=== PATIENT | female | born 1995 | race Caucasian/White ===

== ENCOUNTER 2019-05-01 20:34 | Emergency (ER) | payer BC, OTHER ==
--- OUTSIDE RECORDS SUMMARY | 2019-05-01 20:39 | XMS REPORT | Continuity of Care Document ---
:1995 Author Organization [employer] Care Team Providers Name Role Phone [employer] Unavailable Unavailable Problems Problem Status Onset Classification Date Comments Source Date Reported Abdominal pain 11/14/19 11/17/2018 [place] [facility] [place] Sore throat 11/14/19 11/17/2018 [place] [facility] [place] OTHER Active 11/10/19 [place] [facility] [place] False labor 08/20/20 12/28/2018 [place] before 37 18 [place] completed weeks of gestation, third trimester First degree 07/26/20 02/06/2019 [place] perineal 18 [place] laceration during delivery Late vomiting of 07/20/20 01/31/2019 [place] False labor at or 07/14/20 01/26/2019 [place] after 37 18 [place] completed weeks of gestation RELATED Active 07/14/20 [place] related 07/13/20 01/24/2019 [place] conditions, 18 [place] unspecified, third trimester OBS Active 07/07/20 [place] CONTRACTIONS Active 07/03/20 [place] FLUID DISCHARGE Active 07/02/20 [place] [facility] [place] Resolved 07/12/20 Problem 03/08/2019 [facility], [place] Unspecified 01/24/2019 [place] abdominal pain [place] 37 weeks 01/24/2019 [place] gestation of [place] Anemia Active Problem 03/08/2019 [facility] [place] Resolved Problem 03/08/2019 [facility] [place] Resolved Problem 03/08/2019 [facility], [place] 38 weeks 01/31/2019 [place] gestation of [place] 33 weeks 12/28/2018 [place] gestation of [place] Single live 02/06/2019 [place] 39 weeks 02/06/2019 [place] gestation of [place] Personal history 02/06/2019 [place] of nicotine [place] dependence Medications Medication Details Route Status Patient Ordering Order Source Instructions Provider Date tramadol 50 mg=1 tab, Active [place] hydrochloride 50 PO, Q8H, PRN 2019 [place] MG Oral Tablet Pain, X 5 day, # 15 tab, 0 Refill(s) Sulfamethoxazole 1 tab, PO, BID, Active [place] 800 MG / X 10 day, # 20 2019 [place] Trimethoprim 160 tab, 0 MG Oral Tablet Refill(s) [Bactrim] Cephalexin 500 MG 500 mg=1 cap, Active [place] Oral Capsule PO, QID, X 10 2019 [place] [Keflex] day, # 40 cap, 0 Refill(s) Omnipaque 300 75 mL, Route: Inactive [place] injectable IVP, Dosing 2019 [place] solution Weight 70.455, kg, ONCALL, GFR > 45 mL/min, STAT, Start date: 11/14/18 14:31:00 CABLE PLACER, Duration: 1 doses or times Ondansetron 4 mg, Route: Inactive [place] IVP, ONCE, 2018 [place] Dosing Weight 70.455, kg, Priority: STAT, Start date: 11/14/18 13:10:00 CABLE PLACER, Stop date: 11/14/18 13:10:00 CABLE PLACER Saline Flush 0.9% 10 mL, Route: Inactive [place] IVP, Drug Form: 2018 [place] INJ, Dosing Weight 70.455, kg, PRN, PRN Line Flush, Start date: 11/14/18 13:10:00 CABLE PLACER, Duration: 30 day, Stop date: 12/14/18 14:09:00 CDTNotes: (Same as: BD Posiflush) Sodium Chloride 1,000 mL, Inactive [place] 0.9% (Bolus) IV Infuse Over: 1 2018 [place] hr, Route: IV, ONCE, Priority: STAT, Dosing Weight 70.455 kg, Start date: 11/14/18 13:10:00 CABLE PLACER, Stop date: 11/14/18 13:10:00 CABLE PLACER Tylenol 650 mg, Route: Inactive [place] PO, Drug form: 2019 [place] TAB, ONCE, Dosing Weight 70.455, kg, Priority: STAT, Start date: 11/14/18 13:10:00 CABLE PLACER, Stop date: 11/14/18 13:10:00 CABLE PLACER cefdinir 300 MG 300 mg=1 cap, No Longer Oral Capsule PO, BID, X 10 Active 2017, # 20 cap, Group 0 Refill(s), Pharmacy: [facility]/pharmacy #[id number] ibuprofen 600 mg 600 mg=1 tab, No Longer [place] oral tablet PO, Q6Hnow, # Active 2017 [place] 60 tab, 1 Refill(s) Docusate Sodium 100 mg=1 cap, Active [place] 100 MG Oral PO, BID, PRN 2018 [place] Capsule Constipation, # 60 cap, 1 Refill(s) 1 tab, Route: Inactive [place] Multivitamins oral PO, Drug Form: 2017 [place] tablet TAB, Dosing Weight 78.182, kg, Daily, Start date: 07/20/18 9:00:00 CDT, Duration: 30 day, Stop date: 08/18/18 9:00:00 CABLE PLACER Metronidazole 500 mg, 1 tab, No Longer [place] Route: PO, Drug Active 2017 [place] form: TAB, Q12H, Dosing Weight 78.182, kg, Start date: 07/19/18 21:00:00 CDT, Duration: 3 day, Stop date: 07/22/18 9:00:00 CDT, ABX Indication: Genital Tract InfectionNotes: (Same as: Flagyl) Take with food/ avoid alcohol Ibuprofen 600 mg, 1 tab, No Longer [place] Route: PO, Drug Active 2017 [place] form: TAB, Q6Hnow, Dosing Weight 78.182, kg, Start date: 07/19/18 14:00:00 CDT, Duration: 30 day, Stop date: 08/18/18 8:00:00 CSTNotes: (Same as: Victorina) "Do Not Crush" Take with food. M-M-R II 0.5 mL, Route: No Longer [place] SUB-Q, Drug Active 2017 [place] Form: PDR/INJ, Dosing Weight 78.182, kg, ONCALL, Give only if patient rubella non-immune, Start date: 07/19/18 14:00:00 CDT, Duration: 1 doses or timesNotes: (Same as: M-M-R II) (measles-mumps- rubella virus vaccine 0.5 ml INJ VL) WASTE: F/P - Red; E -Red GIVE PRIOR TO DISCHARGE zolpidem 5 mg, 1 tab, No Longer [place] Route: PO, Drug Active 2018 [place] form: TAB, Bedtime, Dosing Weight 78.182, kg, PRN Sleep, Start date: 07/19/18 13:59:00 CDT, Duration: 30 day, Stop date: 08/18/18 13:58:00 CSTNotes: (Same As: Ambien) Benzocaine 200 1 spray, Route: No Longer 07/19/ [place] MG/ML Topical TOP, PRN, Drug Active 2018 [place] [Dermoplast] form: SPRY, PRN Irritation, Start date: 07/19/18 13:59:00 CDT, Duration: 30 day, Stop date: 08/18/18 12:58:00 CSTNotes: (Same As: Dermoplast) WASTE: Aerosol - Return to Pharmacy FOR EXTERNAL USE ONLY Methylergonovine 0.2 mg, 1 mL, No Longer 07/19/ [place] Route: IM, Drug Active 2017 [place] form: INJ, PRN, Dosing Weight 78.182, kg, PRN Other -See Comment, Start date: 07/19/18 13:59:00 CDT, Duration: 30 day, Stop date: 08/18/18 12:58:00 CSTNotes: (Same as:Methergine) Acetaminophen 325 1 tab, Route: No Longer 07/19/ [place] MG / Hydrocodone PO, Drug Form: Active 2018 [place] Bitartrate 10 MG TAB, Dosing Oral Tablet Weight 78.182, kg, Q4H, PRN Pain Score 7-10, Start date: 07/19/18 13:59:00 CDT, Duration: 30 day, Stop date: 08/18/18 13:58:00 CSTNotes: Do not exceed 4gm/day of acetaminophen. (Same as: [place] 325/10) Acetaminophen 325 1 tab, Route: No Longer 07/19/ [place] MG / Hydrocodone PO, Drug Form: Active 2018 [place] Bitartrate 5 MG TAB, Dosing Oral Tablet Weight 78.182, kg, Q4H, PRN Pain Score 4-6, Start date: 07/19/18 13:59:00 CDT, Duration: 30 day, Stop date: 08/18/18 13:58:00 CSTNotes: (Same as: [place] 325/5) Do not exceed 4gm/day of acetaminophen. Docusate 100 mg, 1 cap, No Longer [place] Route: PO, Drug Active 2017 [place] form: CAP, BID, Dosing Weight 78.182, kg, PRN Constipation, Start date: 07/19/18 13:59:00 CDT, Duration: 30 day, Stop date: 08/18/18 13:58:00 CSTNotes: (Same as: Colace) (Do Not Crush) Ondansetron 4 mg, 2 mL, No Longer [place] Route: IVP, Active 2017 Drug form: INJ, Q8H, Dosing Weight 78.182, kg, PRN Nausea & Vomiting, Start date: 07/19/18 13:59:00 CDT, Duration: 30 day, Stop date: 08/18/18 13:58:00 CSTNotes: (Same as: Zofran) MEDICATION WASTE Product Size: 4 mg Product Wasted: ___ mg lanolin topical 1 appl, Route: No Longer [place] TOP, PRN, Drug Active 2017 [place] form: OINT, PRN Other -See Comment, Start date: 07/19/18 13:59:00 CDT, Duration: 30 day, Stop date: 08/18/18 12:58:00 CSTNotes: (Same as:Lanolin) Bisacodyl 10 mg, 1 supp, No Longer [place] Route: ND, Drug Active 2017 [place] form: SUPP, PRN, Dosing Weight 78.182, kg, PRN Other -See Comment, Start date: 07/19/18 13:59:00 CDT, Duration: 30 day, Stop date: 08/18/18 12:58:00 CSTNotes: (Same As: Dulcolax, Bisco-Lax) Oxytocin 30 unit, 500 No Longer [place] mL, Rate: 42 2017 ml/hr, Infuse over: 11.9 hr, Dosing Weight 78.182, kg, Route: IV, Total Volume: 500 mL, Start date: 07/19/18 13:59:00 CDT, Duration: 2 day, Stop date: 07/21/18 13:58:00 CDT, Replace Every: 11.9 hr Lactated Ringers 1,000 mL, Rate: No Longer 1030/ MH [place] IV 1,000 mL 100 ml/hr, Active 2017 Infuse over: 10 hr, Route: IV, Dosing Weight 78.182 kg, Total Volume: 1,000, Start date: 07/19/18 13:59:00 CDT, Duration: 30 day, Stop date: 08/18/18 13:58:00 CABLE PLACER, 1.91, m2 Vistaril 50 mg, 2 tab, Inactive /30/ MH [place] Route: PO, Drug 2017 [place] form: TAB, ONCE, Dosing Weight 78.182, kg, PRN Anxiety, Start date: 07/19/18 11:33:00 CDTNotes: (Same as: Atarax) Avoid alcohol. Oxytocin 30 unit, 500 Inactive 10/30/ MH [place] mL, Rate: 2017 Titrate, Dosing Weight 78.182, kg, Route: IV, Total Volume: 500 mL, Start date: 07/19/18 3:44:00 CDT, Duration: 2 day, Stop date: 07/21/18 3:43:00 CDT, Replace Every: 24 hr Carboprost 250 microgram, Inactive 10/30/ MH [place] 1 mL, Route: 2017 IM, Drug form: INJ, ONCALL, Dosing Weight 78.182, kg, Start date: 07/19/18 3:00:00 CDT, Duration: 30 day, Stop date: 08/18/18 1:59:00 CSTNotes: (Same As: Hemabate) Famotidine 20 mg, 2 mL, Inactive 10/30/ MH [place] Route: IVP, 2017 Drug form: INJ, ONCALL, Dosing Weight 78.182, kg, Start date: 07/19/18 3:00:00 CDT, Duration: 30 day, Stop date: 08/18/18 1:59:00 CSTNotes: (Same as: Pepcid) Can be dilute in 5-10cc NS IVP: Slow IV push over at least 2 minutes. Misoprostol 1,000 Inactive 10/30/ MH [place] microgram, 5 2017 tab, Route: ND, Drug form: TAB, ONCALL, Dosing Weight 78.182, kg, Start date: 07/19/18 3:00:00 CDT, Duration: 1 doses or timesNotes: (Same as:Cytotec) Take with food Citric Acid / 30 mL, Route: Inactive [place] sodium citrate PO, Drug Form: 2017 [place] SOLN, Dosing Weight 78.182, kg, ONCALL, Start date: 07/19/18 3:00:00 CDT, Duration: 30 day, Stop date: 08/18/18 1:59:00 CSTNotes: (Same As: Bicitra) Methylergonovine 0.2 mg, 1 mL, Inactive 07/19/ [place] Route: IM, Drug 2017 [place] form: INJ, ONCALL, Dosing Weight 78.182, kg, Start date: 07/19/18 3:00:00 CDT, Duration: 30 day, Stop date: 08/18/18 1:59:00 CSTNotes: (Same as:Methergine) Ondansetron 4 mg, 2 mL, Inactive 07/19/ [place] Route: IVP, 2017 [place] Drug form: INJ, Q8H, Dosing Weight 78.182, kg, PRN Nausea & Vomiting, Start date: 07/19/18 2:50:00 CDT, Duration: 30 day, Stop date: 08/18/18 2:49:00 CSTNotes: (Same as: Zofran) MEDICATION WASTE Product Size: 4 mg Product Wasted: ___ mg Acetaminophen 325 2 tab, Route: Inactive [place] MG / Hydrocodone PO, Drug Form: 2017 [place] Bitartrate 5 MG TAB, Dosing Oral Tablet Weight 78.182, kg, Q4H, PRN Pain Score 7-10, Start date: 07/19/18 2:50:00 CDT, Duration: 30 day, Stop date: 08/18/18 2:49:00 CSTNotes: (Same as: [place] 325/5) Do not exceed 4gm/day of acetaminophen. Lidocaine 200 mg, 20 mL, Inactive 07/19/ [place] Hydrochloride 10 Route: PERCUT, 2017 [place] MG/ML Injectable Drug Form: INJ, Solution Dosing Weight 78.182, kg, PRN, PRN Other -See Comment, Start date: 07/19/18 2:50:00 CDT, Duration: 1 doses or times, Stop date: Limited # of timesNotes: (Same as: Xylocaine) Terbutaline 0.25 mg, 0.25 Inactive [place] mL, Route: 2018 [place] SUB-Q, Drug form: INJ, PRN, Dosing Weight 78.182, kg, PRN Other -See Comment, Start date: 07/19/18 2:50:00 CDT, Duration: 1 doses or times, Stop date: Limited # of timesNotes: DO NOT USE IN EMAIL ADMINISTRATOR AREA (Same As: Brethine) Butorphanol 1 mg, 1 mL, Inactive [place] Route: IVP, 2017 [facility] Drug form: INJ, Q2H, Dosing Weight 78.182, kg, PRN Pain Score 4-6, Start date: 07/19/18 2:50:00 CDT, Duration: 30 day, Stop date: 08/18/18 2:49:00 CSTNotes: (Same As: Stadol) Ibuprofen 600 mg, 1 tab, Inactive [place] Route: PO, Drug 2017 [place] form: TAB, Q6H, Dosing Weight 78.182, kg, PRN Other -See Comment, Start date: 07/19/18 2:50:00 CDT, Duration: 30 day, Stop date: 08/18/18 2:49:00 CSTNotes: (Same as: Motrin) "Do Not Crush" Take with food. Calcium Chloride 1,000 mL, 1,000 Inactive [place] 0.0014 MEQ/ML / ml/hr, Infuse 2017 [facility] Potassium Chloride Over: 1 hr, 0.004 MEQ/ML / Route: IV, Sodium Chloride 1,000, Drug 0.103 MEQ/ML / form: INJ, Sodium Lactate ONCE, Dosing 0.028 MEQ/ML Weight 78.182 Injectable kg, Start date: Solution 07/19/18 2:50:00 CDT, Stop date: 07/19/18 2:50:00 CDT, Bolus for regional anesthesia per unit routine Lactated Ringers 1,000 mL, Rate: Inactive [place] IV 1,000 mL 125 ml/hr, 2017 [facility] Infuse over: 8 hr, Route: IV, Dosing Weight 78.182 kg, Total Volume: 1,000, Start date: 07/19/18 2:50:00 CDT, Duration: 30 day, Stop date: 08/18/18 2:49:00 CABLE PLACER, 1.91, m2 Oxytocin 30 unit, 500 Inactive 07/19/ MH [place] mL, Rate: 42 2017 ml/hr, Infuse over: 11.9 hr, Dosing Weight 78.182, kg, Route: IV, Total Volume: 500 mL, Start date: 07/19/18 2:50:00 CDT, Duration: 2 day, Stop date: 07/21/18 2:49:00 CDT, Replace Every: 11.9 hr Fentanyl / Route: Inactive 07/19/ MH [place] ropivacaine EPIDURAL, 2017 Continuous Rate: 8, ml/hr, Infusion site: Lumbar, FIRE WATCHER dose 3 mL, FIRE WATCHER dose lockout: 15 minutes, 1 Hour limit: 20 mL, 200, mL, Start date: 07/19/18 2:49:00 CDT, Duration: 30, day, Drug Form: INJ, Total volume: 200, mL, kg, Stop date: ...Notes: (Same as Naropin-Sublima ze) Metronidazole 500 500 mg=1 tab, No Longer 10/25/ MH [place] MG Oral Tablet PO, BID, X [address] [facility] [Flagyl] day, # 14 tab, 0 Refill(s) Famotidine 20 MG 20 mg=1 tab, No Longer 10/25/ MH [place] Oral Tablet PO, BID, # [address] [facility] [Pepcid] tab, 0 Refill(s) ondansetron 4 mg 4 mg=1 tab, PO, No Longer 10/25/ MH [place] oral tablet ONCE, # 20 tab, Active 2017 [place] 0 Refill(s) Zofran 4 mg, 1 tab, Inactive 10/25/ MH [place] Route: PO, Drug 2017 [place] form: TAB, ONCE, Dosing Weight 78.182, kg, Start date: 07/14/18 12:05:00 CDT, Stop date: 07/14/18 12:05:00 CDTNotes: (Same as: Zofran) tetanus/diphth/per 0.5 mL, Route: Inactive 10/25/ MH [place] tuss (Tdap) IM, Drug Form: 2017 adult/adol SUSP, kg, ONCALL, Start date: 07/14/18 0:00:00 CDT, Duration: 1 doses or timesNotes: (Tdap ) For Adolecent and Adult use For IM Use. Same as: Adacel (Tdap) Pepcid 20 mg, 1 tab, Inactive [place] Route: PO, Drug 2017 [place] form: TAB, ONCE, Dosing Weight 79.545, kg, Priority: NOW, Start date: 07/09/18 11:02:00 CDT, Stop date: 07/09/18 11:02:00 CDTNotes: (Same as: Pepcid) Tylenol 1,000 mg, 2 Inactive [place] tab, Route: PO, 2017 [facility] Drug form: TAB, ONCE, Dosing Weight 79.545, kg, PRN Pain Score 1-3, Priority: NOW, Start date: 07/09/18 10:03:00 CDTNotes: Max acetaminophen 4000 mg/day (4 gm/day). (Same as: Tylenol Extra Strength) Zofran 4 mg, 1 tab, Inactive [place] Route: PO, Drug 2017 [place] form: TAB, ONCE, Dosing Weight 79.545, kg, Priority: NOW, Start date: 07/09/18 10:02:00 CDT, Stop date: 07/09/18 10:02:00 CDTNotes: (Same as: Zofran) Calcium Chloride 1,000 mL, Rate: Inactive [place] 0.0014 MEQ/ML / 125 ml/hr, 2017 [facility] Potassium Chloride Infuse over: 8 0.004 MEQ/ML / hr, Route: IV, Sodium Chloride Dosing Weight 0.103 MEQ/ML / 78.182 kg, Sodium Lactate Total Volume: 0.028 MEQ/ML 1,000, Start Injectable date: 07/07/18 Solution 20:37:00 CDT, Duration: 30 day, Stop date: 08/06/18 20:36:00 CABLE PLACER, 1.91, m2 1 oral 0 Refill(s) Active Sugar capsule 2017 [facility] Allergies, Adverse Reactions, Alerts Substance Category Reaction Severity Reaction Status Date Comments Source type Reported No Known Assertion Drug Medication allergy Medical Allergies Group Immunizations No Data Provided for This Section Results Order Name Results Value Reference Date Interpretation Comments Source Range RAPID Grp A Strep Negative Negative 11/14 Scr (11/14/18 1:32 PM) /2018 [place] CHEM PANEL eGFR 121 11/14 Comment: The [place] eGFR is [place] calculated using the CKD-EPI formula. In most young, healthy individuals the eGFR will be >90 mL/min/1.73m2 . The eGFR declines with age. An eGFR of 60-89 may be normal in some populations, particularly the elderly, for whom the CKD-EPI formula has not been extensively validated. Use of the eGFR is not recommended in the following populations:< br/>
Carla viduals with unstable creatinine concentration s, including patients and those with serious co-morbid conditions.<b r/>
Patie nts with extremes in muscle mass or diet.

The data above are obtained from the National Kidney Disease Education Program (NKDEP) which additionally recommends that when the eGFR is used in patients with extremes of body mass index for purposes of drug dosing, the eGFR should be multiplied by the estimated BMI. CHEM PANEL Bili Total 0.4 0.2 - 1.3 11/14 [place] CHEM PANEL Albumin Lvl 4.7 3.5 - 5.0 11/14 [place] CHEM PANEL ALT 26 0 - 65 11/14 [place] CHEM PANEL Calcium Lvl 8.9 8.5 - 10.5 11/14 [place] CHEM PANEL Total Protein 8.7 6.4 - 8.4 11/14 [place] CHEM PANEL Alk Phos 69 39 - 136 11/14 [place] CHEM PANEL AST 15 0 - 37 11/14 [place] CHEM PANEL Chloride Lvl 108 95 - 109 11/14 [place] CHEM PANEL CO2 24 24 - 32 11/14 [place] CHEM PANEL Potassium Lvl 3.1 3.5 - 5.1 11/14 [place] CHEM PANEL Sodium Lvl 140 135 - 145 11/14 [place] CHEM PANEL Glucose Lvl 95 70 - 99 11/14 [place] CHEM PANEL BUN 10 7 - 22 11/14 [place] CHEM PANEL Creatinine 0.71 0.50 - 02 MH Lvl 1.40 /2018 [place] CHEM PANEL Globulin 4.0 2.7 - 4.2 11/14 [place] CHEM PANEL B/C Ratio 14 6 - 25 11/14 [place] CHEM PANEL AGAP 11.1 10.0 - 11/14 MH 20.0 [place] CHEM PANEL A/G Ratio 1.2 0.7 - 1.6 11/14 [place] CHEM PANEL Lactic Acid 1.3 0.5 - 2.2 11/14 MH Lvl /2018 [place] HEMATOLOGY Hct 40.3 36.0 - 11/14 MH 48.0 /2018 [place] HEMATOLOGY Hgb 14.0 12.0 - 11/14 MH 16.0 [place] HEMATOLOGY MCHC 34.8 32.0 - 11/14 MH 36.0 /2018 [place] HEMATOLOGY MCH 32.3 27.0 - 11/14 MH 31.0 [place] HEMATOLOGY MCV 92.9 80.0 - 11/14 MH 98.0 /2018 [place] HEMATOLOGY MPV 7.8 7.4 - 10.4 11/14 [place] HEMATOLOGY Platelet 244 133 - 450 11/14 [place] HEMATOLOGY RDW 12.7 11.5 - 11/14 MH 14.5 [place] HEMATOLOGY RBC 4.34 4.20 - 11/14 MH 5.40 /2018 [place] HEMATOLOGY WBC 6.1 3.7 - 10.4 11/14 [place] HEMATOLOGY Lymphocytes # 2.1 1.0 - 5.5 11/14 [place] HEMATOLOGY Monocytes 7.6 2.0 - 12.0 11/14 [place] HEMATOLOGY Neutrophils # 3.3 1.5 - 8.1 11/14 [place] HEMATOLOGY Eosinophils 3.3 0.0 - 4.0 11/14 [place] HEMATOLOGY Basophils # 0.1 0.0 - 0.2 11/14 [place] HEMATOLOGY Eosinophils # 0.2 0.0 - 0.5 11/14 [place] HEMATOLOGY Segs 54.5 45.0 - 11/14 MH 75.0 [place] HEMATOLOGY Lymphocytes 33.7 20.0 - 11/14 MH 40.0 [place] HEMATOLOGY Basophils 0.9 0.0 - 1.0 11/14 [place] HEMATOLOGY Monocytes # 0.5 0.0 - 0.8 11/14 [place] URINE AND UA Glucose Negative Negative 11/14 MH STOOL *NA* /2019 [place] (11/14/18 1:25 PM) [place] URINE AND UA Ketones Negative Negative 11/14 STOOL *NA* /2018 [place] (11/14/18 1:25 PM) [place] URINE AND UA Leuk Est Negative Negative 11/14 STOOL (11/14/18 1:25 PM) [place] URINE AND UA Sq Epi Occasional Few /LPF 11/14 STOOL /LPF /2018 [place] URINE AND UA WBC <1 0 - 5 11/14 STOOL /2018 [place] URINE AND UA Protein Negative Negative 11/14 STOOL (11/14/18 1:25 PM) /2018 [place] URINE AND UA Bili Negative Negative 11/14 STOOL *NA* /2018 [place] (11/14/18 1:25 PM) [place] URINE AND UA Blood Negative Negative 11/14 STOOL (11/14/18 1:25 PM) [place] URINE AND UA Nitrite Negative Negative 11/14 STOOL (11/14/18 1:25 PM) [place] URINE AND UA <=1.0 mg/dL 0.1 - 1.0 11/14 STOOL Urobilinogen /2018 [place] URINE AND UA pH 7.0 5.0 - 8.0 11/14 STOOL /2018 [place] URINE AND UA Spec Grav 1.001 <=1.030 11/14 STOOL /2018 [place] URINE AND UA Color Colorless Yellow 11/14 STOOL *NA* /2018 [place] (11/14/18 1:25 PM) [place] URINE AND UA Turbidity Clear Clear 11/14 STOOL (11/14/18 1:25 PM) [place] URINE CHEM U Preg Negative Negative 11/14 (11/14/18 1:25 PM) [place] HEMATOLOGY Hgb 9.6 12.0 - 07/20 MH 16.0 [place] HEMATOLOGY Hct 29.4 36.0 - 07/20 MH 48.0 [place] BLOOD BANK ABO/Rh A POS 07/19 RESULTS /2017 [place] BLOOD BANK Antibody Scrn Negative 07/19 RESULTS (07/19/18 2:53 AM) [place] HEMATOLOGY Basophils 0.5 0.0 - 1.0 07/19 [place] HEMATOLOGY Lymphocytes # 2.4 1.0 - 5.5 07/19 [place] HEMATOLOGY Neutrophils # 5.4 1.5 - 8.1 07/19 [place] HEMATOLOGY Eosinophils # 0.2 0.0 - 0.5 07/19 [place] HEMATOLOGY Basophils # 0.0 0.0 - 0.2 07/19 [place] HEMATOLOGY Monocytes # 0.7 0.0 - 0.8 07/19 [place] HEMATOLOGY Segs 62.2 45.0 - 07/19 MH 75.0 /2017 [place] HEMATOLOGY Monocytes 7.8 2.0 - 12.0 07/19 [place] HEMATOLOGY Eosinophils 2.0 0.0 - 4.0 07/19 [place] HEMATOLOGY Lymphocytes 27.5 20.0 - 07/19 MH 40.0 [place] HEMATOLOGY MPV 7.6 7.4 - 10.4 07/19 [place] HEMATOLOGY MCHC 34.4 32.0 - 07/19 MH 36.0 [place] HEMATOLOGY Hgb 10.8 12.0 - 07/19 MH 16.0 [place] HEMATOLOGY RBC 3.33 4.20 - 07/19 MH 5.40 [place] HEMATOLOGY WBC 8.6 3.7 - 10.4 07/19 [place] HEMATOLOGY Platelet 228 133 - 450 07/19 [place] HEMATOLOGY RDW 17.4 11.5 - 07/19 MH 14.5 [place] HEMATOLOGY MCV 94.1 80.0 - 07/19 MH 98.0 [place] HEMATOLOGY Hct 31.3 36.0 - 07/19 MH 48.0 [place] HEMATOLOGY MCH 32.3 27.0 - 07/19 MH 31.0 [place] IMMUNOLOGY Treponemal Ab Non-Reactive Non 07/19 *NA* [place] (07/19/18 2:53 AM) [place] IMMUNOLOGY Hep Bs Ag Negative Negative 07/19 *NA* [place] (07/19/18 2:53 AM) [place] IMMUNOLOGY HIV. Negative Negative 07/19 *NA* [place] (07/19/18 2:53 AM) [place] BODY FLUIDS Amnisure ROM Negative Negative 07/14 (07/14/18 11:39 AM) [place] BODY FLUIDS Amnisure ROM Negative Negative 07/09 (07/09/18 9:52 AM) [place] BODY FLUIDS Amnisure ROM Negative Negative 07/03 (07/03/18 3:15 PM) [place] URINE AND UA Mucus Few /LPF None Seen 07/03 STOOL /LPF [place] URINE AND UA <=1.0 mg/dL 0.1 - 1.0 07/03 STOOL Urobilinogen [place] URINE AND UA Bacteria Occasional None Seen 07/03 STOOL /HPF /HPF [place] URINE AND UA Spec Grav 1.006 <=1.030 07/03 STOOL [place] URINE AND UA Color Light Yellow Yellow 07/03 STOOL *NA* /2017 [place] (07/03/18 3:15 PM) [place] URINE AND UA Turbidity Slight Clear 07/03 STOOL *ABN* [place] (07/03/18 3:15 PM) [place] URINE AND UA Nitrite Negative Negative 07/03 STOOL (07/03/18 3:15 PM) [place] URINE AND UA Sq Epi Moderate Few /LPF 07/03 STOOL /LPF [place] URINE AND UA Leuk Est Trace Negative 07/03 STOOL *ABN* [place] (07/03/18 3:15 PM) [place] URINE AND UA pH 7.0 5.0 - 8.0 07/03 STOOL [place] URINE AND UA RBC 2 0 - 2 07/03 STOOL [place] URINE AND UA WBC 2 0 - 5 07/03 STOOL [place] URINE AND UA Blood Negative Negative 07/03 STOOL (07/03/18 3:15 PM) [place] URINE AND UA Glucose Negative Negative 07/03 STOOL mg/dL mg/dL [place] URINE AND UA Protein Negative Negative 07/03 STOOL mg/dL mg/dL [place] URINE AND UA Bili Negative Negative 07/03 STOOL *NA* [place] (07/03/18 3:15 PM) [place] URINE AND UA Ketones Negative Negative 07/03 STOOL mg/dL mg/dL [place] BODY FLUIDS Amnisure ROM Negative Negative 07/02 (07/02/18 11:09 AM) [place] BODY FLUIDS Amnisure ROM Negative Negative 06/10 (06/10/18 9:57 AM) [place] Pathology Reports No Data Provided for This Section Diagnostic Reports Report Value Date Source ED Abdomen/Pelvis IV EXAM: ED Abdomen/Pelvis IV contrast only CT 11/14/[address] [place] [address] 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 COMPARISON: localization US on 07/03/2018. TECHNIQUE: Volumetric CT acquisition of the abdomen and pelvis after the administration of intravenous contrast. Axial, coronal and sagittal reconstructions. AEC, mA/kV adjustment by patient size, and/or iterative reconstruction technique were used, per departmental dose-optimization program. Contrast phases: Venous and Delayed. IV contrast: 75 mL Omnipaque. Oral contrast: None. DLP: 1130 mGy-cm. FINDINGS: Lines and Tubes: None. Lower Thorax: Unremarkable. Liver and Biliary tree: There is diffuse fatty infiltration of the liver. No worrisome focal hepatic lesions are identified. The hepatic contour is smooth. There is no intrahepatic biliary ductal dilatation. Gallbladder: Normal. No CT evidence of gallstones. Adrenals: Normal. Spleen: Normal. Pancreas: Normal. Kidneys and Ureters: * No stones, hydronephrosis, or suspicious masses on the left. * 0.4 cm nonobstructing stone about the interpolar right kidney (coronal image 72). * There is symmetric excretion of contrast on the delayed images. Bladder: Normal. Reproductive Organs: Nonspecific engorgement of the gonadal vessels, left more than right (axial images 75-77). Gastrointestinal Tract: Unremarkable with normal caliber. Appendix: The appendix is normal (sagittal image 92). Peritoneum and Retroperitoneum: No free air or ascites. Lymph Nodes: No lymphadenopathy. Vasculature: Unremarkable. Bones: No acute abnormality. Soft Tissues: No acute findings. A tiny, fat-containing umbilical hernia is present. Its neck measures approximately 1.3 cm craniocaudal by 0.9 cm transverse (sagittal image 109, axial image 49). IMPRESSION: 1. Tiny, fat-containing umbilical hernia. 2. 0.4 cm nonobstructing stone about the interpolar RIGHT kidney. 3. Mild hepatic steatosis. 4. Nonspecific engorgement of the gonadal vessels, left more than right, can be correlated clinically for pelvic congestion syndrome. 5. Nonobstructive bowel gas pattern. Normal appendix. placental Exam: placental localization US 07/03/2018 [facility] localization US Reason for Exam: - possible ROM, please note DARLYN Comparison Exam: None Discussion: Multiple sagittal and axial images were obtained of the gravid uterus for evaluation of the placenta and DARLYN. Single viable intrauterine is seen in vertex presentation. heart rate measur es 144 bpm. DARLYN measures 10.4 cm. Placenta is located posterior (grade 1). Impression: 1. DARLYN measures 10.4 cm. Placenta is located posterior (grade 1). Consultation Notes No Data Provided for This Section Discharge Summaries No Data Provided for This Section History and Physicals No Data Provided for This Section Vital Signs Vital Sign Value Date Comments Source Systolic (mm Hg) 111 11/14/2018 [facility] Diastolic (mm Hg) 72 11/14/2018 [facility] Respitory Rate 16 11/14/2018 [facility] Temperature Oral (F) 98.0 F 11/14/2018 [facility] Heart Rate 82 11/14/2018 [facility] Heart Rate 73 11/14/2018 [facility] Respitory Rate 18 11/14/2018 [facility] Systolic (mm Hg) 117 11/14/2018 [facility] Diastolic (mm Hg) 76 11/14/2018 [facility] Weight 70.455 11/14/2018 [facility] BMI Calculated 25.85 11/14/2018 [facility] Height 165.1 cm 11/14/2018 [facility] Temperature Oral (F) 98 F 11/14/2018 [facility] Weight 71.818 08/18/2018 [facility] Height 165.1 cm 08/18/2018 [facility] BMI Calculated 26.35 08/18/2018 [facility] Systolic (mm Hg) 111 08/18/2018 [facility] Diastolic (mm Hg) 76 08/18/2018 [facility] Heart Rate 66 08/18/2018 [facility] BMI Calculated 25.95 08/04/2018 [facility] Weight 71.818 08/04/2018 [facility] Height 166.37 cm 08/04/2018 [facility] Systolic (mm Hg) 95 08/04/2018 [facility] Diastolic (mm Hg) 65 08/04/2018 [facility] Temperature Oral (F) 98.7 F 08/04/2018 [facility] Heart Rate 69 08/04/2018 [facility] Heart Rate 64 07/20/2018 [facility] Systolic (mm Hg) 99 07/20/2018 [facility] Diastolic (mm Hg) 63 07/20/2018 [facility] Temperature Oral (F) 98.2 F 07/20/2018 [facility] Respitory Rate 18 07/20/2018 [facility] Respitory Rate 18 07/20/2018 [facility] Systolic (mm Hg) 104 07/20/2018 [facility] Diastolic (mm Hg) 62 07/20/2018 [facility] Heart Rate 68 07/20/2018 [facility] Temperature Oral (F) 98.1 F 07/20/2018 [facility] Systolic (mm Hg) 99 07/20/2018 [facility] Diastolic (mm Hg) 62 07/20/2018 [facility] Respitory Rate 17 07/20/2018 [facility] Heart Rate 65 07/20/2018 [facility] Temperature Oral (F) 98.1 F 07/20/2018 [facility] BMI Calculated 28.68 07/19/2018 [facility] Weight 78.182 07/19/2018 [facility] Height 165.1 cm 07/19/2018 [facility] Weight 78.182 07/14/2018 [facility] BMI Calculated 28.68 07/14/2018 [facility] Height 165.1 cm 07/14/2018 [facility] Respitory Rate 18 07/14/2018 [facility] Temperature Oral (F) 98.2 F 07/14/2018 [facility] Systolic (mm Hg) 109 07/14/2018 [facility] Diastolic (mm Hg) 60 07/14/2018 [facility] Systolic (mm Hg) 107 07/09/2018 [facility] Diastolic (mm Hg) 60 07/09/2018 [facility] Systolic (mm Hg) 107 07/09/2018 [facility] Diastolic (mm Hg) 60 07/09/2018 [facility] Systolic (mm Hg) 104 07/09/2018 [facility] Diastolic (mm Hg) 55 07/09/2018 [facility] Respitory Rate 18 07/09/2018 [facility] Height 165.1 cm 07/09/2018 [facility] BMI Calculated 29.18 07/09/2018 [facility] Weight 79.545 07/09/2018 [facility] Weight 78.182 07/08/2018 [facility] Height 165.1 cm 07/08/2018 [facility] BMI Calculated 28.68 07/08/2018 [facility] Respitory Rate 18 07/03/2018 [facility] Systolic (mm Hg) 99 07/03/2018 [facility] Diastolic (mm Hg) 54 07/03/2018 [facility] Weight 78.182 07/03/2018 [facility] BMI Calculated 28.68 07/03/2018 [facility] Height 165.1 cm 07/03/2018 [facility] Heart Rate 95 07/02/2018 [facility] Systolic (mm Hg) 103 07/02/2018 [facility] Diastolic (mm Hg) 53 07/02/2018 [facility] Respitory Rate 18 07/02/2018 [facility] Temperature Oral (F) 97.3 F 07/02/2018 [facility] Weight 78.636 07/02/2018 [facility] Height 165.1 cm 07/02/2018 [facility] BMI Calculated 28.85 07/02/2018 [facility] Temperature Oral (F) 98.2 F 06/10/2018 [facility] Respitory Rate 18 06/10/2018 [facility] Systolic (mm Hg) 104 06/10/2018 [facility] Diastolic (mm Hg) 57 06/10/2018 [facility] BMI Calculated 28.35 06/10/2018 [facility] Weight 77.273 06/10/2018 [facility] Height 165.1 cm 06/10/2018 [facility] Encounters Location Location Encounter Encounter Reason Attending ADM DC Status Source Details Type Number For Provider Date Date Visit [facility] [id number] Subhratha 03/07 03/08 [facility] [place] [id number] Subhratha 06/10 06/10 [facility] [place] [facility] [id number] Subhratha 06/30 07/01 [facility] [id number] Subhratha 07/02 07/02 [facility] [place] [facility] [id number] Subhratha 07/03 07/03 [place] [facility] [id number] Subhratha 07/08 07/08 [place] [facility] [id number] Subhratha 07/09 07/09 [facility] [place] [facility] [id number] Subhratha 07/14 07/14 Anna [place] Anna Fuller [facility] Inpatient [id number] Subhratha 07/19 07/20 Anna [facility] [id number] DAYANARA 08/04 Active [facility] ROBERT Luis Carlos [facility] Outpatient [id number] Dayanara 08/04 08/05 Primary [facility] [id number] DAYANARA 08/18 Active [facility] [place] [facility] Outpatient [id number] Dayanara 08/18 08/19 Primary [facility] [id number] Etienne 11/14 11/14 [address] /2018 [facility] [id number] Dayanara 01/25 Active [facility] [place] [facility] Ambulatory [id number] Dayanara 01/25 01/25 Primary [facility]Reg [facility] Procedures No Data Provided for This Section Assessment and Plan Assessment and Plan Date Source Extracted from:Title: D/c summary- PPD 1 07/20/2018 Anna [facility] Author: Denia Finley MD Date: 07/20/18 Discharge Information The patient is 1 day(s) . Delivery date was 07/19/2018 vaginally. Breast feeding of the infant is effective. Discharge Summary Information: Admitted 07/19/2018, Discharged 07/20/2018. Discharge Plan Discharge Summary Plan Discharge Status: stable. Discharge disposition: discharge to home self care. Prescriptions: reviewed with patient, written and given to patient. Discharge instructions given: to patient. Course Progressing as expected. Follow-up Return to office: in 6 weeks, Denia Finley MD. Extracted from:Title: OB H&P- IOL Author: Denia Finley MD Date: 07/19/18 Impression and Plan category: 1. Maternal condition: Stable. Plan Admit. Labor and Delivery. 23yo @39w2d who presents for elective IOL - pitocin 2x2 - epidural when desired - s/p AROM this AM - continuous monitoring - anticipate Plan of Care No Data Provided for This Section Social History Social History Date Source Social History TypeResponse 07/14/2018 [facility] Substance Abuse Use: None. Alcohol Never Smoking Status Never smoker; Previous treatment: None; Ready to change: No; Concerns about tobacco use in household: No; Exposure to Tobacco Smoke None; Cigarette Smoking Last 365 Days No; Reg Smoking Cessation Counseling No entered on: 11/14/18 Social History TypeResponse 07/14/2018 [facility] Substance Abuse Use: None. Alcohol Never Smoking Status Never smoker; Previous treatment: None; Ready to change: No; Concerns about tobacco use in household: No; Exposure to Tobacco Smoke None; Cigarette Smoking Last 365 Days No; Reg Smoking Cessation Counseling No entered on: 11/14/18 Family History No Data Provided for This Section Advance Directives No Data Provided for This Section Functional Status No Data Provided for This Section
--- OUTSIDE RECORDS SUMMARY | 2019-05-01 20:40 | XMS REPORT | Summary of Care ---
:[address] [facility] Address [address], [place] [address]- Encounter HQ Angel_deneen(FIN) [id number] Date(s): 06/10/18 - 06/10/[address] [facility] [address] [place] [address]- Encounter Diagnosis False labor before 37 completed weeks of gestation, third trimester (Final) - 33 weeks gestation of (Final) - Discharge Disposition: Home or Self Care Attending Physician: Denia Finley MD Admitting Physician: Denia Finley MD Vital Signs Most recent to oldest [Reference Range]: 1 Height 165.1 cm (06/10/18 9:38 AM) Temperature Oral [96.4-99.1 DegF] 98.2 DegF (06/10/18 9:52 AM) Blood Pressure [90-140/60-90 mmHg] 104/57 mmHg (06/10/18 9:52 AM) Respiratory Rate [14-20 BRMIN] 18 BRMIN (06/10/18 9:52 AM) Weight 77.273 kg (06/10/18 9:38 AM) Body Mass Index 28.35 m2 (06/10/18 9:38 AM) Problem List Condition Effective Dates Status Health Status Informant Anemia(Confirmed) Active (Confirmed) Resolved (Confirmed) Resolved (Confirmed) 07/12/13 - 04/17/14 Resolved (Confirmed) 02/26/16 - 12/01/16 Resolved (Confirmed) 06/10/18 - 07/19/18 Resolved Allergies, Adverse Reactions, Alerts Substance Reaction Severity Status NKDA Active Medications 1 oral capsule 0 Refill(s) Start Date: 06/10/18 Status: Ordered Results BODY FLUIDS Most recent to oldest [Reference Range]: 1 Amnisure ROM [Negative] Negative (06/10/18 9:57 AM) Immunizations No data available for this section Procedures No data available for this section Social History Social History Type Response Substance Abuse Use: None. Alcohol Never Smoking Status Never smoker; Previous treatment: None; Ready to change: No; Concerns about tobacco use in household: No; Exposure to Tobacco Smoke None; Cigarette Smoking Last 365 Days No; Reg Smoking Cessation Counseling No entered on: 11/14/18 Assessment and Plan No data available for this section
--- OUTSIDE RECORDS SUMMARY | 2019-05-01 20:40 | XMS REPORT | Summary of Care ---
:1995 Author Organization [facility] Address [address] [place] [address]- Encounter HQ Angel_deneen(FIN) [id number] Date(s): 08/04/18 - 08/04/18 [facility] [address] [place] [address]- Discharge Disposition: Home or Self Care Attending Physician: Angy Robert MSN, RN, [employer]-C Vital Signs Most recent to oldest [Reference Range]: 1 Height 166.37 cm (08/04/18 9:01 AM) Temperature Oral [96.4-99.1 DegF] 98.7 DegF (08/04/18 9:01 AM) Blood Pressure [90-140/60-90 mmHg] 95/65 mmHg (08/04/18 9:01 AM) Peripheral Pulse Rate [60-100 bpm] 69 bpm (08/04/18 9:01 AM) Weight 71.818 kg (08/04/18 9:01 AM) Body Mass Index 25.95 m2 (08/04/18 9:01 AM) Problem List Condition Effective Dates Status Health Status Informant Anemia(Confirmed) Active (Confirmed) Resolved (Confirmed) Resolved (Confirmed) 07/12/13 - 04/17/14 Resolved (Confirmed) 02/26/16 - 12/01/16 Resolved (Confirmed) 06/10/18 - 07/19/18 Resolved Allergies, Adverse Reactions, Alerts No Known Medication Allergies Medications cefdinir 300 mg oral capsule 300 mg=1 cap, PO, BID, X 10 day, # 20 cap, 0 Refill(s), Pharmacy: [facility]/pharmacy # [id number] Start Date: 08/04/18 Stop Date: 08/14/18 Status: Completed Results No data available for this section Immunizations No data available for this section [...]
--- OUTSIDE RECORDS SUMMARY | 2019-05-01 20:40 | XMS REPORT | Summary of Care ---
:1995 Author Organization [facility] Address [address], [place] [address]- Encounter HQ Encntr_alias([facility]) [id number] Date(s): 03/07/18 - 03/07/18 [facility] [id number] [place] [address]- Discharge Disposition: Home or Self Care Attending Physician: Denia Finley MD Admitting Physician: Denia Finley MD Referring Physician: Denia Finley MD Vital Signs No data available for this section Problem List Condition Effective Dates Status Health Status Informant (Confirmed) Resolved (Confirmed) Resolved Allergies, Adverse Reactions, Alerts Substance Reaction Severity Status NKDA Active Medications No data available for this section Results No data available for this section Immunizations No data available for this section Procedures No data available for this section Social History Social History Type Response Smoking Status Never smoker; Exposure to Tobacco Smoke None; Cigarette Smoking Last 365 Days No; Reg Smoking Cessation Counseling No entered on: 10/31/14 Assessment and Plan No data available for this section
--- OUTSIDE RECORDS SUMMARY | 2019-05-01 20:40 | XMS REPORT | Summary of Care ---
:1995 Author Organization [facility] Address [address] [place], [place] [address]- Encounter HQ Encntr_deneen(FIN) [id number] Date(s): 06/30/18 - 06/30/18 [facility] [address] [place] [address]- Encounter Diagnosis Encounter for suspected problem with growth ruled out (Final) - 07/05/18 Discharge Disposition: Home or Self Care Attending [...] Reactions, Alerts No Known Medication Allergies Medications No data available for this section [...]
--- OUTSIDE RECORDS SUMMARY | 2019-05-01 20:40 | XMS REPORT | Summary of Care ---
:1995 Author Organization [facility] Address [address] [phone] Care Team Providers Name Role Phone Angy Robert Primary Care Physician Encounter HQ Akhil(ANGELO) [id number] Date(s): 07/19/18 - 07/20/18 [facility] [address] [place] [address]- Encounter Diagnosis First degree perineal laceration during delivery (Final) - 07/25/18 Single live (Final) - 39 weeks gestation of (Final) - Personal history of nicotine dependence (Final) - Discharge Disposition: Home or Self Care Attending Physician: Denia Finley MD Admitting Physician: Denai Finley MD Vital Signs Most recent to oldest 1 2 3 [Reference Range]: Height 165.1 cm (07/19/18 2:49 AM) Temperature Oral [96.4-99.1 98.2 DegF 98.1 DegF 98.1 DegF DegF] (07/20/18 11:12 AM) (07/20/18 7:07 AM) (07/20/18 4:00 AM) Blood Pressure 99/63 mmHg 104/62 mmHg 99/62 mmHg [90-140/60-90 mmHg] (07/20/18 11:12 AM) (07/20/18 7:07 AM) (07/20/18 4:00 AM ) Respiratory Rate [14-20 18 BRMIN 18 BRMIN 17 BRMIN BRMIN] (07/20/18 11:12 AM) (07/20/18 7:07 AM) (07/20/18 4:00 AM) Peripheral Pulse Rate 64 bpm 68 bpm 65 bpm [60-100 bpm] (07/20/18 11:12 AM) (07/20/18 7:07 AM) (07/20/18 4:00 AM) Weight 78.182 kg (07/19/18 2:49 AM) Body Mass Index 28.68 m2 (07/19/18 2:49 AM) Problem List Condition Effective Dates Status Health Status Informant Anemia(Confirmed) Active (Confirmed) Resolved (Confirmed) Resolved (Confirmed) 07/12/13 - 04/17/14 Resolved (Confirmed) 02/26/16 - 12/01/16 Resolved (Confirmed) 06/10/18 - 07/19/18 Resolved Allergies, Adverse Reactions, Alerts No Known Medication Allergies Medications acetaminophen-hydrocodone 325 mg-10 mg oral tablet 1 tab, Route: PO, Drug Form: TAB, Dosing Weight 78.182, kg, Q4H, PRN Pain Score 7-10, Start date: 07/19/18 13:59:00 CDT, Duration: 30 day, Stop date: 08/18/18 13:58:00 RECONDITIONER Notes: Do not exceed 4gm/day of acetaminophen. (Same as: Astatula 325/10) Start Date: 07/19/18 Stop Date: 07/20/18 Status: Discontinuedacetaminophen-hydrocodone 325 mg-5 mg oral tablet 1 tab, Route: PO, Drug Form: TAB, Dosing Weight 78.182, kg, Q4H, PRN Pain Score 4-6, Start date: 07/19/18 13:59:00 CDT, Duration: 30 day, Stop date: 08/18/18 13 :58:00 RECONDITIONER Notes: (Same as: Astatula 325/5) Do not exceed 4gm/day of acetaminophen. Start Date: 07/19/18 Stop Date: 07/20/18 Status: Discontinuedacetaminophen-hydrocodone 325 mg-5 mg oral tablet 2 tab, Route: PO, Drug Form: TAB, Dosing Weight 78.182, kg, Q4H, PRN Pain Score 7-10, Start date: 07/19/18 2:50:00 CDT, Duration: 30 day, Stop date: 08/18/18 2: 49:00 RECONDITIONER Notes: (Same as: Astatula 325/5) Do not exceed 4gm/day of acetaminophen. Start Date: 07/19/18 Stop Date: 07/19/18 Status: Discontinuedacetaminophen-hydrocodone 325 mg-5 mg oral tablet 1 tab, Route: PO, Drug Form: TAB, Dosing Weight 78.182, kg, Q4H, PRN Pain Score 4-6, Start date: 07/19/18 2:50:00 CDT, Duration: 30 day, Stop date: 08/18/18 2: 49:00 RECONDITIONER Notes: (Same as: Astatula 325/5) Do not exceed 4gm/day of acetaminophen. Start Date: 07/19/18 Stop Date: 07/19/18 Status: Discontinuedbisacodyl 10 mg, 1 supp, Route: TX, Drug form: SUPP, PRN, Dosing Weight 78.182, kg, PRN Other -See Comment, Start date: 07/19/18 13:59:00 CDT, Duration: 30 day, Stop date: 08/18/18 12:58:00 RECONDITIONER Notes: (Same As: Dulcolax, Bisco-Lax) Start Date: 07/19/18 Stop Date: 07/20/18 Status: Discontinuedbisacodyl 15 mg, 3 tab, Route: PO, Drug form: ECTAB, Daily, Dosing Weight 78.182, kg, PRN Other -See Comment, Start date: 07/19/18 13:59:00 CDT, Duration: 30 day, Stop date: 08/18/18 13:58:00 RECONDITIONER Notes: (Same As: Dulcolax, Correctol) (Do Not Crush) "Do Not Crush" Start Date: 07/19/18 Stop Date: 07/20/18 Status: Discontinuedbutorphanol 1 mg, 1 mL, Route: IVP, Drug form: INJ, Q2H, Dosing Weight 78.182, kg, PRN Pain Score 4-6, Start date: 07/19/18 2:50:00 CDT, Duration: 30 day, Stop date: 2:49:00 RECONDITIONER Notes: (Same As: Stadol) Start Date: 07/19/18 Stop Date: 07/19/18 Status: Discontinuedbutorphanol 2 mg, 1 mL, Route: IVP, Drug form: INJ, Q2H, Dosing Weight 78.182, kg, PRN Pain Score 7-10, Start date: 07/19/18 2:50:00 CDT, Duration: 30 day, Stop date: 08/18 2:49:00 RECONDITIONER Notes: (Same As: Stal) MEDICATION WASTE Product Size: 2 mgProduct Wasted: ___ mg Start Date: 07/19/18 Stop Date: 07/19/18 Status: Discontinuedcarboprost 250 microgram, 1 mL, Route: IM, Drug form: INJ, ONCALL, Dosing Weight 78.182, kg , Start date: 07/19/18 3:00:00 CDT, Duration: 30 day, Stop date: 08/18/18 1:59: 00 RECONDITIONER Notes: (Same As: Hemabate) Start Date: 07/19/18 Stop Date: 07/19/18 Status: Discontinuedcitric acid-sodium citrate 30 mL, Route: PO, Drug Form: SOLN, Dosing Weight 78.182, kg, ONCALL, Start date : 07/19/18 3:00:00 CDT, Duration: 30 day, Stop date: 08/18/18 1:59:00 RECONDITIONER Notes: (Same As: Bicitra) Start Date: 07/19/18 Stop Date: 07/19/18 Status: DiscontinuedDermoplast 20% topical spray 1 spray, Route: TOP, PRN, Drug form: SPRY, PRN Irritation, Start date: 07/19/18 13:59:00 CDT, Duration: 30 day, Stop date: 08/18/18 12:58:00 RECONDITIONER Notes: (Same As: Dermoplast)WASTE: Aerosol - Return to Pharmacy FOR EXTERNAL USE ONLY Start Date: 07/19/18 Stop Date: 07/20/18 Status: Discontinueddocusate 100 mg, 1 cap, Route: PO, Drug form: CAP, BID, Dosing Weight 78.182, kg, PRN Constipation, Start date: 07/19/18 13:59:00 CDT, Duration: 30 day, Stop date: 13:58:00 RECONDITIONER Notes: (Same as: Colace) (Do Not Crush) Start Date: 07/19/18 Stop Date: 07/20/18 Status: Discontinueddocusate sodium 100 mg oral capsule 100 mg=1 cap, PO, BID, PRN Constipation, # 60 cap, 1 Refill(s) Start Date: 07/20/18 Status: Orderedfamotidine 20 mg, 2 mL, Route: IVP, Drug form: INJ, ONCALL, Dosing Weight 78.182, kg, Start date: 07/19/18 3:00:00 CDT, Duration: 30 day, Stop date: 08/18/18 1:59:00 RECONDITIONER Notes: (Same as: Pepcid)Can be dilute in 5-10cc NS IVP: Slow IV push over at least 2 minutes. Start Date: 07/19/18 Stop Date: 07/19/18 Status: Discontinuedibuprofen 600 mg, 1 tab, Route: PO, Drug form: TAB, Q6Hnow, Dosing Weight 78.182, kg, Start date: 07/19/18 14:00:00 CDT, Duration: 30 day, Stop date: 08/18/18 8:00: 00 RECONDITIONER Notes: (Same as: Motrin)"Do Not Crush" Take with food. Start Date: 07/19/18 Stop Date: 07/20/18 Status: Discontinuedibuprofen 600 mg, 1 tab, Route: PO, Drug form: TAB, Q6H, Dosing Weight 78.182, kg, PRN Other -See Comment, Start date: 07/19/18 2:50:00 CDT, Duration: 30 day, Stop date: 08/18/18 2:49:00 RECONDITIONER Notes: (Same as: Motrin)"Do Not Crush" Take with food. Start Date: 07/19/18 Stop Date: 07/19/18 Status: Discontinuedibuprofen 600 mg oral tablet 600 mg=1 tab, PO, Q6Hnow, # 60 tab, 1 Refill(s) Start Date: 07/20/18 Stop Date: 07/30/18 Status: CompletedLactated Ringers (Bolus) IV 1,000 mL, 1,000 ml/hr, Infuse Over: 1 hr, Route: IV, 1,000, Drug form: INJ, ONCE , Dosing Weight 78.182 kg, Start date: 07/19/18 2:50:00 CDT, Stop date: 2:50:00 CDT, Bolus for regional anesthesia per unit routine Start Date: 07/19/18 Stop Date: 07/19/18 Status: DiscontinuedLactated Ringers IV 1,000 mL 1,000 mL, Rate: 100 ml/hr, Infuse over: 10 hr, Route: IV, Dosing Weight 78.182 kg, Total Volume: 1,000, Start date: 07/19/18 13:59:00 CDT, Duration: 30 day, Stop date: 08/18/18 13:58:00 RECONDITIONER, 1.91, m2 Start Date: 07/19/18 Stop Date: 07/20/18 Status: DiscontinuedLactated Ringers IV 1,000 mL 1,000 mL, Rate: 125 ml/hr, Infuse over: 8 hr, Route: IV, Dosing Weight 78.182 kg , Total Volume: 1,000, Start date: 07/19/18 2:50:00 CDT, Duration: 30 day, Stop date: 08/18/18 2:49:00 RECONDITIONER, 1.91, m2 Start Date: 07/19/18 Stop Date: 07/19/18 Status: Discontinuedlanolin topical 1 appl, Route: TOP, PRN, Drug form: OINT, PRN Other -See Comment, Start date: 13:59:00 CDT,Duration: 30 day, Stop date: 08/18/18 12:58:00 RECONDITIONER Notes: (Same as:Lanolin) Start Date: 07/19/18 Stop Date: 07/20/18 Status: Discontinuedlidocaine 1% 200 mg, 20 mL, Route: PERCUT, Drug Form: INJ, Dosing Weight 78.182, kg, PRN, PRN Other -See Comment,Start date: 07/19/18 2:50:00 CDT, Duration: 1 doses or times, Stop date: Limited # of times Notes: (Same as: Xylocaine) Start Date: 07/19/18 Stop Date: 07/19/18 Status: Discontinuedlidocaine 1% injectable solution 2.5 mg, 0.25 mL, Route: INTRADERM, Drug Form: INJ, Dosing Weight 78.182, kg, PRN , PRN Other -See Comment, Start date: 07/19/18 2:50:00 CDT, Duration: 30 day, Stop date: 08/18/18 1:49:00 RECONDITIONER Notes: (Same as: Xylocaine) Start Date: 07/19/18 Stop Date: 07/19/18 Status: CbwnobsjgkfnK-C-S II 0.5 mL, Route: SUB-Q, Drug Form: PDR/INJ, Dosing Weight 78.182, kg, ONCALL, Give only if patient rubella non-immune, Start date: 07/19/18 14:00:00 CDT, Duration: 1 doses or times Notes: (Same as: M-M-R II) (hvxaszp-fkdyh-ejlobkl virus vaccine 0.5 ml INJ VL) WASTE: F/P - Red; E -Red GIVE PRIOR TO DISCHARGE Start Date: 07/19/18 Stop Date: 07/20/18 Status: Discontinuedmethylergonovine 0.2 mg, 1 mL, Route: IM, Drug form: INJ, PRN, Dosing Weight 78.182, kg, PRN Other -See Comment, Start date: 07/19/18 13:59:00 CDT, Duration: 30 day, Stop date: 08/18/18 12:58:00 RECONDITIONER Notes: (Same as:Methergine) Start Date: 07/19/18 Stop Date: 07/20/18 Status: Discontinuedmethylergonovine 0.2 mg, 1 mL, Route: IM, Drug form: INJ, ONCALL, Dosing Weight 78.182, kg, Start date: 07/19/18 3:00:00 CDT, Duration: 30 day, Stop date: 08/18/18 1:59:00 RECONDITIONER Notes: (Same as:Methergine) Start Date: 07/19/18 Stop Date: 07/19/18 Status: DiscontinuedmetroNIDAZOLE 500 mg, 1 tab, Route: PO, Drug form: TAB, Q12H, Dosing Weight 78.182, kg, Start date: 07/19/18 21:00:00 CDT, Duration: 3 day, Stop date: 07/22/18 9:00:00 CDT, ABX Indication: Genital Tract Infection Notes: (Same as: Flagyl) Take with food/ avoid alcohol Start Date: 07/19/18 Stop Date: 07/20/18 Status: Discontinuedmisoprostol 1,000 microgram, 5 tab, Route: TX, Drug form: TAB, ONCALL, Dosing Weight 78.182 , kg, Start date: 07/19/18 3:00:00 CDT, Duration: 1 doses or times Notes: (Same as:Cytotec) Take with food Start Date: 07/19/18 Stop Date: 07/19/18 Status: Discontinuedondansetron 4 mg, 2 mL, Route: IVP, Drug form: INJ, Q8H, Dosing Weight 78.182, kg, PRN Nausea & Vomiting, Start date: 07/19/18 13:59:00 CDT, Duration: 30 day, Stop date: 08/18/18 13:58:00 RECONDITIONER Notes: (Same as: Woody) MEDICATION WASTE Product Size: 4 mgProduct Wasted: ___ mg Start Date: 07/19/18 Stop Date: 07/20/18 Status: Discontinuedondansetron 4 mg, 2 mL, Route: IVP, Drug form: INJ, Q8H, Dosing Weight 78.182, kg, PRN Nausea & Vomiting, Start date: 07/19/18 2:50:00 CDT, Duration: 30 day, Stop date: 08/18/18 2:49:00 RECONDITIONER Notes: (Same as: Woody) MEDICATION WASTE Product Size: 4 mgProduct Wasted: ___ mg Start Date: 07/19/18 Stop Date: 07/19/18 Status: Discontinuedoxytocin 30 units in NS 500ml (Titrate) IV 30 unit 30 unit, 500 mL, Rate: 42 ml/hr, Infuse over: 11.9 hr, Dosing Weight 78.182, kg , Route: IV, Total Volume: 500 mL, Start date: 07/19/18 13:59:00 CDT, Duration: 2 day, Stop date: 07/21/18 13:58:00 CDT, Replace Every: 11.9 hr Start Date: 07/19/18 Stop Date: 07/20/18 Status: Discontinuedoxytocin 30 units in NS 500ml (Titrate) IV 30 unit 30 unit, 500 mL, Rate: 42 ml/hr, Infuse over: 11.9 hr, Dosing Weight 78.182, kg , Route: IV, Total Volume: 500 mL, Start date: 07/19/18 2:50:00 CDT, Duration: 2 day, Stop date: 07/21/18 2:49:00 CDT, Replace Every: 11.9 hr Start Date: 07/19/18 Stop Date: 07/19/18 Status: Discontinuedoxytocin 30 units in NS 500ml (Titrate) IV 30 unit 30 unit, 500 mL, Rate: Titrate, Dosing Weight 78.182, kg, Route: IV, Total Volume: 500 mL, Start date: 07/19/18 3:44:00 CDT, Duration: 2 day, Stop date: 3:43:00 CDT, Replace Every: 24 hr Start Date: 07/19/18 Stop Date: 07/19/18 Status: DiscontinuedPrenatal Multivitamins oral tablet 1 tab, Route: PO, Drug Form: TAB, Dosing Weight 78.182, kg, Daily, Start date: 07/20/18 9:00:00 CDT,Duration: 30 day, Stop date: 08/18/18 9:00:00 RECONDITIONER Start Date: 07/20/18 Stop Date: 07/20/18 Status: DiscontinuedRopivacaine 0.2% + fentaNYL 2 mcg/ml Epidural CADD 200 mL Route: EPIDURAL, Continuous Rate: 8, ml/hr, Infusion site: Lumbar, STITCHDOWN THREAD LASTER dose 3 mL , STITCHDOWN THREAD LASTER dose lockout: 15 minutes, 1 Hour limit: 20 mL, 200, mL, Start date: 2:49:00 CDT, Duration: 30, day, Drug Form: INJ, Total volume: 200, mL, kg, Stop date: ... Notes: (Same as Naropin-Sublimaze) Start Date: 07/19/18 Stop Date: 07/19/18 Status: Discontinuedterbutaline 0.25 mg, 0.25 mL, Route: SUB-Q, Drug form: INJ, PRN, Dosing Weight 78.182, kg, PRN Other -See Comment, Start date: 07/19/18 2:50:00 CDT, Duration: 1 doses or times, Stop date: Limited # of times Notes: DO NOT USE IN STEWARD/STEWARDESS TOURIST CLASS AREA(Same As: Brethine) Start Date: 07/19/18 Stop Date: 07/19/18 Status: DiscontinuedVistaril 50 mg, 2 tab, Route: PO, Drug form: TAB, ONCE, Dosing Weight 78.182, kg, PRN Anxiety, Start date: 07/19/18 11:33:00 CDT Notes: (Same as: Atarax) Avoid alcohol. Start Date: 07/19/18 Stop Date: 07/19/18 Status: Completedzolpidem 5 mg, 1 tab, Route: PO, Drug form: TAB, Bedtime, Dosing Weight 78.182, kg, PRN Sleep, Start date: 07/19/18 13:59:00 CDT, Duration: 30 day, Stop date: 08/18/18 13:58:00 RECONDITIONER Notes: (Same As: Ambien) Start Date: 07/19/18 Stop Date: 07/20/18 Status: Discontinued Results Most recent to oldest [Reference Range]: 1 2 Neutrophils # [1.5-8.1 K/CMM] 5.4 K/CMM (07/19/18 2:53 AM) Lymphocytes # [1.0-5.5 K/CMM] 2.4 K/CMM (07/19/18 2:53 AM) Monocytes # [0.0-0.8 K/CMM] 0.7 K/CMM (07/19/18 2:53 AM) Eosinophils # [0.0-0.5 K/CMM] 0.2 K/CMM (07/19/18 2:53 AM) Basophils # [0.0-0.2 K/CMM] 0.0 K/CMM (07/19/18 2:53 AM) ABO/Rh A POS *Unknown* (07/19/18 2:53 AM) Antibody Scrn Negative (07/19/18 2:53 AM) Basophils [0.0-1.0 %] 0.5 % (07/19/18 2:53 AM) Eosinophils [0.0-4.0 %] 2.0 % (07/19/18 2:53 AM) Hep Bs Ag [Negative] Negative *NA* (07/19/18 2:53 AM) Hct [36.0-48.0 %] 29.4 % 31.3 % *LOW* *LOW* (07/20/18 4:54 AM) (07/19/18 2:53 AM) Hgb [12.0-16.0 g/dL] 9.6 g/dL 10.8 g/dL *LOW* *LOW* (07/20/18 4:54 AM) (07/19/18 2:53 AM) Lymphocytes [20.0-40.0 %] 27.5 % (07/19/18 2:53 AM) MCH [27.0-31.0 pg] 32.3 pg *HI* (07/19/18 2:53 AM) MCHC [32.0-36.0 g/dL] 34.4 g/dL (07/19/18 2:53 AM) MCV [80.0-98.0 fL] 94.1 fL (07/19/18 2:53 AM) Monocytes [2.0-12.0 %] 7.8 % (07/19/18 2:53 AM) MPV [7.4-10.4 fL] 7.6 fL (07/19/18 2:53 AM) Platelet [133-450 K/CMM] 228 K/CMM (07/19/18 2:53 AM) Segs [45.0-75.0 %] 62.2 % (07/19/18 2:53 AM) RBC [4.20-5.40 M/CMM] 3.33 M/CMM *LOW* (07/19/18 2:53 AM) RDW [11.5-14.5 %] 17.4 % *HI* (07/19/18 2:53 AM) WBC [3.7-10.4 K/CMM] 8.6 K/CMM (07/19/18 2:53 AM) HIV. [Negative] Negative *NA* (07/19/18 2:53 AM) Treponemal Ab [Non-Reactive] Non-Reactive *NA* (07/19/18 2:53 AM) Immunizations No data available for this [...] No entered on: 11/14/18 Assessment and Plan Extracted from: Title: D/c summary- PPD 1 Author: Denia Finley MD Date: 07/20/18 Discharge Information The patient is 1 day(s) . Delivery date was 07/19/2018 vaginally. Breast feeding of the is effective. Discharge Summary Information: Admitted 07/19/2018, Discharged 07/20/2018. Discharge Plan Discharge Summary Plan Discharge Status: stable. Discharge disposition: discharge to home self care. Prescriptions: reviewed with patient, written and given to patient. Discharge instructions given: to patient. Course Progressing as expected. Follow-up Return to office: in 6 weeks, Denia Finley MD. Extracted from: Title: OB H&P- IOL Author: Denia Finley MD Date: 07/19/18 Impression and Plan category: 1. Maternal condition: Stable. Plan Admit. Labor and Delivery. 23yo @39w2d who presents for elective IOL - pitocin 2x2 - epidural when desired - s/p AROM this AM - continuous monitoring - anticipate
--- OUTSIDE RECORDS SUMMARY | 2019-05-01 20:40 | XMS REPORT | Summary of Care ---
:1995 Author Organization [facility] Address [address], [place] [address]- Care Team Providers Name Role Phone Angy Robert Primary Care Physician Encounter [facility] Akhil(ANGELO) [id number] Date(s): 07/14/18 - 07/14/18 [facility] [address] [place] [address]- Encounter Diagnosis Late vomiting of (Final) - 07/19/18 38 weeks gestation of (Final) - Discharge Disposition: Home or Self Care Attending Physician: Denia Finley MD Admitting Physician: Denia Finley MD Vital Signs Most recent to oldest [Reference Range]: 1 Height 165.1 cm (07/14/18 11:18 AM) Temperature Oral [96.4-99.1 DegF] 98.2 DegF (07/14/18 11:04 AM) Blood Pressure [90-140/60-90 mmHg] 109/60 mmHg (07/14/18 11:04 AM) Respiratory Rate [14-20 BRMIN] 18 BRMIN (07/14/18 11:04 AM) Weight 78.182 kg (07/14/18 11:18 AM) Body Mass Index 28.68 m2 (07/14/18 11:18 AM) Problem List Condition Effective Dates Status Health Status Informant Anemia(Confirmed) Active (Confirmed) Resolved (Confirmed) Resolved (Confirmed) 07/12/13 - 04/17/14 Resolved (Confirmed) 02/26/16 - 12/01/16 Resolved (Confirmed) 06/10/18 - 07/19/18 Resolved Allergies, Adverse Reactions, Alerts No Known Medication Allergies Medications Flagyl 500 mg oral tablet 500 mg=1 tab, PO, BID, X 7 day, # 14 tab, 0 Refill(s) Start Date: 07/14/18 Stop Date: 07/21/18 Status: Completedondansetron 4 mg oral tablet 4 mg=1 tab, PO, ONCE, # 20 tab, 0 Refill(s) Start Date: 07/14/18 Stop Date: 07/20/18 Status: DiscontinuedPepcid 20 mg oral tablet 20 mg=1 tab, PO, BID, # 60 tab, 0 Refill(s) Start Date: 07/14/18 Stop Date: 07/20/18 Status: Discontinuedtetanus/diphth/pertuss (Tdap) adult/adol 0.5 mL, Route: IM, Drug Form: SUSP, kg, ONCALL, Start date: 07/14/18 0:00:00 CDT , Duration: 1 doses or times Notes: (Tdap ) For Adolecent and Adult use For IM Use. Same as: Adacel (Tdap) Start Date: 07/14/18 Stop Date: 07/14/18 Status: DiscontinuedZofran 4 mg, 1 tab, Route: PO, Drug form: TAB, ONCE, Dosing Weight 78.182, kg, Start date: 07/14/18 12:05:00 CDT, Stop date: 07/14/18 12:05:00 CDT Notes: (Same as: Zofran) Start Date: 07/14/18 Stop Date: 07/14/18 Status: Completed Results Most recent to oldest [Reference Range]: 1 Amnisure ROM [Negative] Negative (07/14/18 11:39 AM) Immunizations No data available for this [...]
--- OUTSIDE RECORDS SUMMARY | 2019-05-01 20:40 | XMS REPORT | Summary of Care ---
:1995 Author Organization [facility] Address [address], [place] [address]- Encounter HQ Encntr_deneen(FIN) [id number] Date(s): 11/14/18 - 11/14/18 [facility] [address] [place] [address]- Encounter Diagnosis Abdominal pain (Discharge Diagnosis) - 11/14/18 Sore throat (Discharge Diagnosis) - 11/14/18 Discharge Disposition: Home or Self Care Attending Physician: Etienne Hankins MD Vital Signs Most recent to oldest [Reference Range]: 1 2 Height 165.1 cm (11/14/18 12:52 PM) Temperature Oral [96.4-99.1 DegF] 98.0 DegF 98 DegF (11/14/18 3:56 PM) (11/14/18 12:52 PM) Blood Pressure [90-140/60-90 mmHg] 111/72 mmHg 117/76 mmHg (11/14/18 3:56 PM) (11/14/18 12:52 PM) Respiratory Rate [14-20 BRMIN] 16 BRMIN 18 BRMIN (11/14/18 3:56 PM) (11/14/18 12:52 PM) Peripheral Pulse Rate [60-100 bpm] 82 bpm 73 bpm (11/14/18 3:56 PM) (11/14/18 12:52 PM) Weight 70.455 kg (11/14/18 12:52 PM) Body Mass Index 25.85 m2 (11/14/18 12:52 PM) Problem List Condition Effective Dates Status Health Status Informant Anemia(Confirmed) Active (Confirmed) Resolved (Confirmed) Resolved (Confirmed) 07/12/13 - 7/29/14 Resolved (Confirmed) 02/26/16 - 12/01/16 Resolved (Confirmed) 06/10/18 - 07/19/18 Resolved Allergies, Adverse Reactions, Alerts Substance Reaction Severity Status NKDA Active Medications Bactrim DS 800 mg- 160 mg oral tablet 1 tab, PO, BID, X 10 day, # 20 tab, 0 Refill(s) Start Date: 11/14/18 Stop Date: 11/24/18 Status: OrderedKeflex 500 mg oral capsule 500 mg=1 cap, PO, QID, X 10 day, # 40 cap, 0 Refill(s) Start Date: 11/14/18 Stop Date: 11/24/18 Status: OrderedOmnipaque 300 injectable solution 75 mL, Route: IVP, Dosing Weight 70.455, kg, ONCALL, GFR > 45 mL/min, STAT, Start date: 11/14/18 14:31:00 PRIVATE BANKER, Duration: 1 doses or times Start Date: 11/14/18 Stop Date: 11/14/18 Status: Completedondansetron 4 mg, Route: IVP, ONCE, Dosing Weight 70.455, kg, Priority: STAT, Start date: 13:10:00 PRIVATE BANKER,Stop date: 11/14/18 13:10:00 PRIVATE BANKER Start Date: 11/14/18 Stop Date: 11/14/18 Status: CompletedSaline Flush 0.9% 10 mL, Route: IVP, Drug Form: INJ, Dosing Weight 70.455, kg, PRN, PRN Line Flush , Start date: 11/14/18 13:10:00 PRIVATE BANKER, Duration: 30 day, Stop date: 12/14/18 14:09 :00 CDT Notes: (Same as: BD Posiflush) Start Date: 11/14/18 Stop Date: 11/14/18 Status: DiscontinuedSodium Chloride 0.9% (Bolus) IV 1,000 mL, Infuse Over: 1 hr, Route: IV, ONCE, Priority: STAT, Dosing Weight 70.455 kg, Start date: 11/14/18 13:10:00 PRIVATE BANKER, Stop date: 11/14/18 13:10:00 PRIVATE BANKER Start Date: 11/14/18 Stop Date: 11/14/18 Status: Completedtramadol 50 mg oral tablet 50 mg=1 tab, PO, Q8H, PRN Pain, X 5 day, # 15 tab, 0 Refill(s) Start Date: 11/14/18 Stop Date: 11/19/18 Status: OrderedTylenol 650 mg, Route: PO, Drug form: TAB, ONCE, Dosing Weight 70.455, kg, Priority: STAT, Start date: 11/14/18 13:10:00 PRIVATE BANKER, Stop date: 11/14/18 13:10:00 PRIVATE BANKER Start Date: 11/14/18 Stop Date: 11/14/18 Status: Completed Results ELECTROLYTES Most recent to oldest [Reference Range]: 1 Sodium Lvl [135-145 mEq/L] 140 mEq/L (11/14/18 1:25 PM) Potassium Lvl [3.5-5.1 mEq/L] 3.1 mEq/L *LOW* (11/14/18 1:25 PM) Chloride Lvl [95-109 mEq/L] 108 mEq/L (11/14/18 1:25 PM) CO2 [24-32 mEq/L] 24 mEq/L (11/14/18 1:25 PM) AGAP [10.0-20.0 mEq/L] 11.1 mEq/L (11/14/18 1:25 PM) CHEM PANEL Most recent to oldest [Reference Range]: 1 Creatinine Lvl [0.50-1.40 mg/dL] 0.71 mg/dL (11/14/18 1:25 PM) eGFR 121 mL/min/1.73m2 1 *NA* (11/14/18 1:25 PM) BUN [7-22 mg/dL] 10 mg/dL (11/14/18 1:25 PM) B/C Ratio [6-25] 14 (11/14/18 1:25 PM) Glucose Lvl [70-99 mg/dL] 95 mg/dL (11/14/18 1:25 PM) Total Protein [6.4-8.4 g/dL] 8.7 g/dL *HI* (11/14/18 1:25 PM) Albumin Lvl [3.5-5.0 g/dL] 4.7 g/dL (11/14/18 1:25 PM) Globulin [2.7-4.2 g/dL] 4.0 g/dL (11/14/18 1:25 PM) A/G Ratio [0.7-1.6] 1.2 (11/14/18 1:25 PM) Calcium Lvl [8.5-10.5 mg/dL] 8.9 mg/dL (11/14/18 1:25 PM) ALT [0-65 unit/L] 26 unit/L (11/14/18 1:25 PM) AST [0-37 unit/L] 15 unit/L (11/14/18 1:25 PM) Alk Phos [39-136 unit/L] 69 unit/L (11/14/18 1:25 PM) Bili Total [0.2-1.3 mg/dL] 0.4 mg/dL (11/14/18 1:25 PM) Lactic Acid Lvl [0.5-2.2 mMol/L] 1.3 mMol/L (11/14/18 1:25 PM) 1Result Comment: The eGFR is calculated using the CKD-EPI formula. In most young , healthy individualsthe eGFR will be >90 mL/min/1.73m2. The eGFR declines with age. An eGFR of 60-89 may be normal insome populations, particularly the elderly, for whom the CKD-EPI formula has not been extensively validated. Use of the eGFR is not recommended in the following populations: Individuals with unstable creatinine concentrations, including patients and those with serious co-morbid conditions. Patients with extremes in muscle mass or diet. The data above are obtained from the National Kidney Disease Education Program ( NKDEP) which additionally recommends that when the eGFR is used in patients with extremes of body mass index for purposesof drug dosing, the eGFR should be multiplied by the estimated BMI.URINE CHEM Most recent to oldest [Reference Range]: 1 U Preg [Negative] Negative (11/14/18 1:25 PM) URINE AND STOOL Most recent to oldest [Reference Range]: 1 UA Turbidity [Clear] Clear (11/14/18 1:25 PM) UA Color [Yellow] Colorless *NA* (11/14/18 1:25 PM) UA pH [5.0-8.0] 7.0 (11/14/18 1:25 PM) UA Spec Grav [<=1.030] 1.001 (11/14/18 1:25 PM) UA Glucose [Negative] Negative *NA* (11/14/18 1:25 PM) UA Blood [Negative] Negative (11/14/18 1:25 PM) UA Ketones [Negative] Negative *NA* (11/14/18 1:25 PM) UA Protein [Negative] Negative (11/14/18 1:25 PM) UA Urobilinogen [0.1-1.0 mg/dL] <=1.0 mg/dL *NA* (11/14/18 1:25 PM) UA Bili [Negative] Negative *NA* (11/14/18 1:25 PM) UA Leuk Est [Negative] Negative (11/14/18 1:25 PM) UA Nitrite [Negative] Negative (11/14/18 1:25 PM) UA WBC [0-5 /HPF] <1 /HPF (11/14/18 1:25 PM) UA Sq Epi [Few /LPF] Occasional /LPF *NA* (11/14/18 1:25 PM) HEMATOLOGY Most recent to oldest [Reference Range]: 1 WBC [3.7-10.4 K/CMM] 6.1 K/CMM (11/14/18 1:25 PM) RBC [4.20-5.40 M/CMM] 4.34 M/CMM (11/14/18 1:25 PM) Hgb [12.0-16.0 g/dL] 14.0 g/dL (11/14/18 1:25 PM) Hct [36.0-48.0 %] 40.3 % (11/14/18 1:25 PM) MCV [80.0-98.0 fL] 92.9 fL (11/14/18 1:25 PM) MCH [27.0-31.0 pg] 32.3 pg *HI* (11/14/18 1:25 PM) MCHC [32.0-36.0 g/dL] 34.8 g/dL (11/14/18 1:25 PM) RDW [11.5-14.5 %] 12.7 % (11/14/18 1:25 PM) MPV [7.4-10.4 fL] 7.8 fL (11/14/18 1:25 PM) Platelet [133-450 K/CMM] 244 K/CMM (11/14/18 1:25 PM) Segs [45.0-75.0 %] 54.5 % (11/14/18 1:25 PM) Lymphocytes [20.0-40.0 %] 33.7 % (11/14/18 1:25 PM) Monocytes [2.0-12.0 %] 7.6 % (11/14/18 1:25 PM) Eosinophils [0.0-4.0 %] 3.3 % (11/14/18 1:25 PM) Basophils [0.0-1.0 %] 0.9 % (11/14/18 1:25 PM) Neutrophils # [1.5-8.1 K/CMM] 3.3 K/CMM (11/14/18 1:25 PM) Lymphocytes # [1.0-5.5 K/CMM] 2.1 K/CMM (11/14/18 1:25 PM) Monocytes # [0.0-0.8 K/CMM] 0.5 K/CMM (11/14/18 1:25 PM) Eosinophils # [0.0-0.5 K/CMM] 0.2 K/CMM (11/14/18 1:25 PM) Basophils # [0.0-0.2 K/CMM] 0.1 K/CMM (11/14/18 1:25 PM) RAPID Most recent to oldest [Reference Range]: 1 Grp A Strep Scr [Negative] Negative (11/14/18 1:32 PM) Immunizations No data available for this section [...]
--- OUTSIDE RECORDS SUMMARY | 2019-05-01 20:40 | XMS REPORT | Summary of Care ---
:1995 Author Organization [facility] Address [address] [phone]- Care Team Providers Name Role Phone Angy Robert Primary Care Physician Encounter HQ Akhil(ANGELO) [id number] Date(s): 07/03/18 - 07/03/18 [facility] [address] [place] [address]- Encounter Diagnosis False labor at or after 37 completed weeks of gestation (Final) - 07/08/18 37 weeks gestation of (Final) - Discharge Disposition: Home or Self Care Attending Physician: Denia Finley MD Admitting Physician: Denia Finley MD Vital Signs Most recent to oldest [Reference Range]: 1 Height 165.1 cm (07/03/18 2:54 PM) Blood Pressure [90-140/60-90 mmHg] 99/54 mmHg (07/03/18 3:30 PM) Respiratory Rate [14-20 BRMIN] 18 BRMIN (07/03/18 3:30 PM) Weight 78.182 kg (07/03/18 2:54 PM) Body Mass Index 28.68 m2 (07/03/18 2:54 PM) Problem List Condition Effective Dates Status Health Status Informant Anemia(Confirmed) Active (Confirmed) Resolved (Confirmed) Resolved (Confirmed) 07/12/13 - 04/17/14 Resolved (Confirmed) 02/26/16 - 12/01/16 Resolved (Confirmed) 06/10/18 - 07/19/18 Resolved Allergies, Adverse Reactions, Alerts No Known Medication Allergies Medications No Known Medications Results Most recent to oldest [Reference Range]: 1 UA Bacteria [None Seen /HPF] Occasional /HPF *NA* (07/03/18 3:15 PM) UA Bili [Negative] Negative *NA* (07/03/18 3:15 PM) UA Blood [Negative] Negative (07/03/18 3:15 PM) UA Color [Yellow] Light Yellow *NA* (07/03/18 3:15 PM) UA Glucose [Negative mg/dL] Negative mg/dL *NA* (07/03/18 3:15 PM) UA Ketones [Negative mg/dL] Negative mg/dL *NA* (07/03/18 3:15 PM) UA Leuk Est [Negative] Trace *ABN* (07/03/18 3:15 PM) UA Mucus [None Seen /LPF] Few /LPF *NA* (07/03/18 3:15 PM) UA Nitrite [Negative] Negative (07/03/18 3:15 PM) UA pH [5.0-8.0] 7.0 (07/03/18 3:15 PM) UA Protein [Negative mg/dL] Negative mg/dL (07/03/18 3:15 PM) UA RBC [0-2 /HPF] 2 /HPF (07/03/18 3:15 PM) UA Spec Grav [<=1.030] 1.006 (07/03/18 3:15 PM) UA Sq Epi [Few /LPF] Moderate /LPF *ABN* (07/03/18 3:15 PM) UA Turbidity [Clear] Slight *ABN* (07/03/18 3:15 PM) UA Urobilinogen [0.1-1.0 mg/dL] <=1.0 mg/dL *NA* (07/03/18 3:15 PM) UA WBC [0-5 /HPF] 2 /HPF (07/03/18 3:15 PM) Amnisure ROM [Negative] Negative (07/03/18 3:15 PM) Immunizations No data available for this [...]
--- OUTSIDE RECORDS SUMMARY | 2019-05-01 20:40 | XMS REPORT | Summary of Care ---
:1995 Author Organization [facility] Address [address] [address]- Care Team Providers Name Role Phone Angy Robert Primary Care Physician Encounter HQ Akhil([facility]) [id number] Date(s): 07/07/18 - 07/07/18 [facility] [address] [place] [address]- Encounter Diagnosis related conditions, unspecified, third trimester (Final) - 07/12/18 Unspecified abdominal pain (Final) - 37 weeks gestation of (Final) - Discharge Disposition: Home or Self Care Attending Physician: Denia Finley MD Admitting Physician: Denia Finley MD Vital Signs Most recent to oldest [Reference Range]: 1 Height 165.1 cm (07/07/18 8:37 PM) Weight 78.182 kg (07/07/18 8:37 PM) Body Mass Index 28.68 m2 (07/07/18 8:37 PM) Problem List Condition Effective Dates Status Health Status Informant Anemia(Confirmed) Active (Confirmed) Resolved (Confirmed) Resolved (Confirmed) 07/12/13 - 04/17/14 Resolved (Confirmed) 02/26/16 - 12/01/16 Resolved (Confirmed) 06/10/18 - 07/19/18 Resolved Allergies, Adverse Reactions, Alerts No Known Medication Allergies Medications Lactated Ringers Injection IV 1,000 mL 1,000 mL, Rate: 125 ml/hr, Infuse over: 8 hr, Route: IV, Dosing Weight 78.182 kg , Total Volume: 1,000, Start date: 07/07/18 20:37:00 CDT, Duration: 30 day, Stop date: 08/06/18 20:36:00 ROVING TELLER, 1.91, m2 Start Date: 07/07/18 Stop Date: 07/07/18 Status: Discontinued Results No data available for this section [...]
--- OUTSIDE RECORDS SUMMARY | 2019-05-01 20:40 | XMS REPORT | Summary of Care ---
:1995 Author Organization [facility] Address [address] [place] [address]- Care Team Providers Name Role Phone Angy Robert Primary Care Physician Encounter HQ Akhil(ANGELO) [id number] Date(s): 08/18/18 - 08/18/18 [facility] [address] [place] [address]- [phone] Discharge Disposition: Home or Self Care Attending Physician: Angy Robert MSN, RN, KNAPSACK SPRAYER-C Vital Signs Most recent to oldest [Reference Range]: 1 Height 165.1 cm (08/18/18 2:50 PM) Blood Pressure [90-140/60-90 mmHg] 111/76 mmHg (08/18/18 2:50 PM) Peripheral Pulse Rate [60-100 bpm] 66 bpm (08/18/18 2:50 PM) Weight 71.818 kg (08/18/18 2:50 PM) Body Mass Index 26.35 m2 (08/18/18 2:50 PM) Problem List Condition Effective Dates Status Health Status Informant Anemia(Confirmed) Active (Confirmed) Resolved (Confirmed) Resolved (Confirmed) 07/12/13 - 04/17/14 Resolved (Confirmed) 02/26/16 - 12/01/16 Resolved (Confirmed) 06/10/18 - 07/19/18 Resolved Allergies, Adverse Reactions, Alerts No Known Medication Allergies Medications No Known Medications Results No data available for this section [...]
--- OUTSIDE RECORDS SUMMARY | 2019-05-01 20:40 | XMS REPORT | Summary of Care ---
:1995 Author Organization [facility] Address [address] [place] [address]- Care Team Providers Name Role Phone Angy Robert Primary Care Physician Encounter HQ Encntr_deneen(FIN) [id number] Date(s): 01/25/19 - 01/25/19 [address] [place] [address]- [phone] Attending Physician: Angy Robert MSN, RN, FURNACE ATTENDANT-C Vital Signs No data available for this [...]
--- OUTSIDE RECORDS SUMMARY | 2019-05-01 20:40 | XMS REPORT | Summary of Care ---
:1995 Author Organization [facility] Address [address] [phone]- Care Team Providers Name Role Phone Angy Robert Primary Care Physician Encounter HQ Akhil(ANGELO) [id number] Date(s): 07/09/18 - 07/09/18 [facility] [address] [place] [address]- Encounter Diagnosis False labor at or after 37 completed weeks of gestation (Final) - 07/13/18 38 weeks gestation of (Final) - Discharge Disposition: Home or Self Care Attending Physician: Denia Finley MD Admitting Physician: Denia Finley MD Vital Signs Most recent to oldest 1 2 3 [Reference Range]: Height 165.1 cm (07/09/18 9:50 AM) Blood Pressure 107/60 mmHg 107/60 mmHg 104/55 mmHg [90-140/60-90 mmHg] (07/09/18 11:00 AM) (07/09/18 10:58 AM) (07/09/18 10:30 AM) Respiratory Rate [14-20 18 BRMIN BRMIN] (07/09/18 9:54 AM) Weight 79.545 kg (07/09/18 9:50 AM) Body Mass Index 29.18 m2 (07/09/18 9:50 AM) Problem List Condition Effective Dates Status Health Status Informant Anemia(Confirmed) Active (Confirmed) Resolved (Confirmed) Resolved (Confirmed) 07/12/13 - 04/17/14 Resolved (Confirmed) 02/26/16 - 12/01/16 Resolved (Confirmed) 06/10/18 - 07/19/18 Resolved Allergies, Adverse Reactions, Alerts No Known Medication Allergies Medications Pepcid 20 mg, 1 tab, Route: PO, Drug form: TAB, ONCE, Dosing Weight 79.545, kg, Priority: NOW, Start date: 07/09/18 11:02:00 CDT, Stop date: 07/09/18 11:02:00 CDT Notes: (Same as: Pepcid) Start Date: 07/09/18 Stop Date: 07/09/18 Status: CompletedTylenol 1,000 mg, 2 tab, Route: PO, Drug form: TAB, ONCE, Dosing Weight 79.545, kg, PRN Pain Score 1-3, Priority: NOW, Start date: 07/09/18 10:03:00 CDT Notes: Max acetaminophen 4000 mg/day (4 gm/day). (Same as: Tylenol Extra Strength) Start Date: 07/09/18 Stop Date: 07/09/18 Status: CompletedZofran 4 mg, 1 tab, Route: PO, Drug form: TAB, ONCE, Dosing Weight 79.545, kg, Priority : NOW, Start date: 07/09/18 10:02:00 CDT, Stop date: 07/09/18 10:02:00 CDT Notes: (Same as: Zofran) Start Date: 07/09/18 Stop Date: 07/09/18 Status: Completed Results Most recent to oldest [Reference Range]: 1 Amnisure ROM [Negative] Negative (07/09/18 9:52 AM) Immunizations No data available for this [...]
--- OUTSIDE RECORDS SUMMARY | 2019-05-01 20:40 | XMS REPORT | Summary of Care ---
:1995 Author Organization [facility] Address [address], [place] [address]- Encounter HQ Angel_deneen(FIN) [id number] Date(s): 07/02/18 - 07/02/18 [facility] [address] [place] [address]- Encounter Diagnosis related conditions, unspecified, third trimester (Final) - 07/07/18 37 weeks gestation of (Final) - Discharge Disposition: Home or Self Care Attending Physician: Denia Finley MD Admitting Physician: Denia Finley MD Vital Signs Most recent to oldest [Reference Range]: 1 Height 165.1 cm (07/02/18 10:59 AM) Temperature Oral [96.4-99.1 DegF] 97.3 DegF (07/02/18 11:17 AM) Blood Pressure [90-140/60-90 mmHg] 103/53 mmHg (07/02/18 11:17 AM) Respiratory Rate [14-20 BRMIN] 18 BRMIN (07/02/18 11:17 AM) Peripheral Pulse Rate [60-100 bpm] 95 bpm (07/02/18 11:17 AM) Weight 78.636 kg (07/02/18 10:59 AM) Body Mass Index 28.85 m2 (07/02/18 10:59 AM) Problem List Condition Effective Dates Status Health Status Informant Anemia(Confirmed) Active (Confirmed) Resolved (Confirmed) Resolved (Confirmed) 07/12/13 - 04/17/14 Resolved (Confirmed) 02/26/16 - 12/01/16 Resolved (Confirmed) 06/10/18 - 07/19/18 Resolved Allergies, Adverse Reactions, Alerts No Known Medication Allergies Medications No Known Medications Results Most recent to oldest [Reference Range]: 1 Amnisure ROM [Negative] Negative (07/02/18 11:09 AM) Immunizations No data available for this [...]
--- OUTSIDE RECORDS SUMMARY | 2019-05-01 20:41 | XMS REPORT | Summary of Care ---
:1995 Author Name YOLETTE Kennedy, [facility] Address Unavailable Unavailable , Care Team Providers Name Role Phone YOLETTE Kennedy, [facility] Unavailable Unavailable Unavailable Unavailable Unavailable Functional Status Name Dates Details Functional status health issues are not documented Status: Name Dates Details Cognitive status health issues are not documented Status: Problems Name Dates Details Encounter for confirmation of test result with physical examination ( V72.40, Z32.00) Status: Active History of hemorrhage (V12.3, Z86.2) Status: Active Medications Name Dates Details PNV Plus Multivitamin TABS Refills: 0 Active Vitafol Gummies 3.33-0.333-34.8 MG Oral Tablet Chewable TAKE 1 TABLET DAILY Quantity: 90 Refills: 3 YOLETTE Kennedy, SUBHRATHA Start : 29-Dec-2017 Active Allergies and Adverse Reactions Name Dates Details No Known Drug Allergies (Allergy) Status: Active Past Medical History Name Dates Details History of No significant past medical history Status: Resolved Procedures Procedure Dates Details Procedures not documented Immunization Name Dates Details Immunizations not documented Family History Name Dates Details Family history of lung cancer (V16.1, Z80.1) Status: Active Name Dates Details Family history of lung cancer (V16.1, Z80.1) Status: Active Name Dates Details Family history of hypertension (V17.49, Z82.49) Status: Active Family history of Heart problem (429.9, I51.9) Status: Active Name Dates Details Family history of lung cancer (V16.1, Z80.1) Status: Active Social History Name Dates Details - Status: Name Dates Details Never smoker Vital Signs Date Test Result Details [id number] BP Systolic 122 mm[Hg] Status: Comments: Location: LUE; Position: Sitting BP Diastolic 63 mm[Hg] Status: Comments: Location: LUE; Position: Sitting Height 65 in Status: Weight 150 lb Status: Body Mass Index Calculated 24.96 kg/m2 Status: Body Surface Area Calculated 1.75 m2 Status: Heart Rate 78 /min Status: Results Date Description Value Details Results not documented Plan of Care Name Dates Details Planned Observations Planned Goals not documented Planned Encounters Appointment; IVA BRUNER On: 05-Jan-2018 9:45 Appointment; DARLING DE LA VEGA M.D. 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 Patient was counseled regarding multiple testing options including screening tests of nuchal translucency, Quad and NIPT. Patient was also counseled regarding neural tubetesting. She was also counseled that nuchal translucency and NIPT did not check for neural tube defects. At this point in time the patient desires NIPT, genetic counseling referral given- PNV rx and gummies given- RTO 4 weeks for care. Instructions Name Dates Details Instructions not documented Encounters Appointment; DARLING DE LA VEGA M.D. On: 29-Dec-2017 15:00 Encounter Diagnosis: Problem not documented
[2019-05-01] MEDS ORDERED: AMOX/K CLAV 875 MG TAB ONE (21:13)
--- NOTE | 2019-05-01 21:14 | EDPHYS ---
Physician Documentation [facility] Name: Brijesh Correia Age: 23 yrs Sex: Female : 1995 Arrival Date: 05/01/2019 Time: 20:48 Bed 8 Private MD: ED Physician Morgan Sellers HPI: 05/01 21:08 This 23 yrs old Female presents to ER via Ambulatory with complaints of mariajose HERNIA. 21:08 The patient presents with abdominal pain in the periumbilical area. Onset: The mariajose symptoms/episode began/occurred 2 day(s) ago. pain infra umbilicus. The symptoms do not radiate. Onset: The symptoms/episode began/occurred 2 day(s) ago. Severity of pain: At its worst the pain was mild in the emergency department the pain is unchanged. 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 ak1 Historical: - Allergies: 21:04 No Known Allergies; ak1 - Home Meds: 21:04 Vitamin Oral [Active]; ak1 - PMHx: 21:04 Hernia; ak1 - PSHx: 21:04 None; ak1 - Immunization history:: Adult Immunizations unknown. - Social history:: Smoking status: unknown. - Ebola Screening: : No symptoms or risks identified at this time. ROS: 21:09 Constitutional: Negative for fever, chills, and weight loss, Eyes: Negative for injury, mariajose pain, redness, and discharge, ENT: Negative for injury, pain, and discharge, Neck: Negative for injury, pain, and swelling, Cardiovascular: Negative for chest pain, palpitations, and edema, Respiratory: Negative for shortness of breath, cough, wheezing, and pleuritic chest pain, Back: Negative for injury and pain, : Negative for injury, bleeding, discharge, and swelling, MS/Extremity: Negative for injury and deformity, Neuro: Negative for headache, weakness, numbness, tingling, and seizure, Psych: Negative for depression, anxiety, suicide ideation, homicidal ideation, and hallucinations, Allergy/Immunology: Negative for hives, rash, and allergies, Endocrine: Negative for neck swelling, polydipsia, polyuria, polyphagia, and marked weight changes, Hematologic/Lymphatic: Negative for swollen nodes, abnormal bleeding, and unusual bruising. 21:09 Abdomen/GI: Positive for abdominal pain, nausea, of the umbilical area. 21:09 Skin: Positive for of the left breast. mariajose Exam: 21:09 Constitutional: This is a well developed, well nourished patient who is awake, alert, mariajose and in no acute distress. Head/Face: Normocephalic, atraumatic. Eyes: Pupils equal round and reactive to light, extra-ocular motions intact. Lids and lashes normal. Conjunctiva and sclera are non-icteric and not injected. Cornea within normal limits. Periorbital areas with no swelling, redness, or edema. ENT: Nares patent. No nasal discharge, no septal abnormalities noted. Tympanic membranes are normal and external auditory canals are clear. Oropharynx with no redness, swelling, or masses, exudates, or evidence of obstruction, uvula midline. Mucous membranes moist. Neck: Trachea midline, no thyromegaly or masses palpated, and no cervical lymphadenopathy. Supple, full range of motion without nuchal rigidity, or vertebral point tenderness. No Meningismus. Cardiovascular: Regular rate and rhythm with a normal S1 and S2. No gallops, murmurs, or rubs. Normal PMI, no JVD. No pulse deficits. Respiratory: Lungs have equal breath sounds bilaterally, clear to auscultation and percussion. No rales, rhonchi or wheezes noted. No increased work of breathing, no retractions or nasal flaring. Abdomen/GI: Soft, non-tender, with normal bowel sounds. No distension or tympany. No guarding or rebound. No evidence of tenderness throughout. Back: No spinal tenderness. No costovertebral tenderness. Full range of motion. Skin: Warm, dry with normal turgor. Normal color with no rashes, no lesions, and no evidence of cellulitis. MS/ Extremity: Pulses equal, no cyanosis. Neurovascular intact. Full, normal range of motion. Neuro: Awake and alert, GCS 15, oriented to person, place, time, and situation. Cranial nerves II-XII grossly intact. Motor strength 5/5 in all extremities. Sensory grossly intact. Cerebellar exam normal. Normal gait. Psych: Awake, alert, with orientation to person, place and time. Behavior, mood, and affect are within normal limits. 21:09 Chest/axilla: Inspection: cellulitis, of the left breast 21:09 Abdomen/GI: Inspection: abdomen appears normal, Bowel sounds: normal, Palpation: mild abdominal tenderness, Liver: no appreciated palpable abnormalities, Hernia: not appreciated. Vital Signs: 21:01 BP 112 / 79; Pulse 85; Resp 16; Temp 97.7; Pulse Ox 100% on R/A; Weight 68.04 kg (R); ak1 Height 5 ft. 5 in. (165.10 cm) (R); Pain 09/29; 21:01 Body Mass Index 24.96 (68.04 kg, 165.10 cm) ak1 MDM: 20:51 Patient medically screened. [facility] 21:09 Data reviewed: vital signs, nurses notes, lab test result(s). [facility] 05/01 21:18 Order name: Urine Dipstick--Ancillary (enter results) [facility] 05/01 21:18 Order name: Urine --Ancillary (enter results) [facility] Administered Medications: 21:12 Drug: Augmentin 875 mg Route: PO; [facility] 21:22 Follow up: Response: No adverse reaction [facility] 21:14 Drug: Zofran 4 mg Route: PO; ma1 21:22 Follow up: Response: No adverse reaction [facility] Disposition: 05/01/19 21:13 Discharged to Home. Impression: Umbilical hernia without obstruction or gangrene, Umbilical hernia, infective mastitis. - Condition is Stable. - Discharge Instructions: Hernia, Adult, Mastitis, Mastitis, [id number]. - Prescriptions for Dicloxacillin 500 mg Oral Capsule - take 1 capsule by ORAL route every 6 hours for 10 days; 40 capsule. Zofran 4 mg Oral Tablet - take 1 tablet by ORAL route every 12 hours As needed; 14 tablet. - Medication Reconciliation Form, Thank You Letter, Antibiotic Education, Prescription Opioid Use form. - Follow up: Private Physician; When: Tomorrow; Reason: Recheck today's complaints, Continuance of care, Re-evaluation by your physician. - Problem is new. - Symptoms have improved. Signatures: Dispatcher [employer] Morgan Guerrier MD MD cha Krenek, Amber, RN RN ak1 Corrections: (The following items were deleted from the chart) 21:27 21:13 05/01/2019 21:13 Discharged to Home. Impression: Umbilical hernia without ak1 obstruction or gangrene; Umbilical hernia; infective mastitis. Condition is Stable. Forms are Medication Reconciliation Form, Thank You Letter, Antibiotic Education, Prescription Opioid Use. Follow up: Private Physician; When: Tomorrow; Reason: Recheck today's complaints, Continuance of care, Re-evaluation by your physician. Problem is new. Symptoms have improved. mariajose
--- NOTE | 2019-05-01 21:14 | ER ---
Nurse's Notes [facility] Name: Brijesh Correia Age: 23 yrs Sex: Female : 1995 Arrival Date: 05/01/2019 Time: 20:48 Bed 8 Private MD: Diagnosis: Umbilical hernia without obstruction or gangrene;Umbilical hernia; infective mastitis Presentation: 05/01 21:01 Presenting complaint: Patient states: umbilical hernia causing nausea. pt c/o left ak1 breast with swelling, hard and painful since last night. pt states she is 9 months post vaginal delivery. pt c/o constipation and took Miralax this morning. 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 Transition of care: patient was not received from another setting of care. Onset of symptoms is unknown. Risk Assessment: Do you want to hurt yourself or someone else? Patient reports no desire to harm self or others. Initial Sepsis Screen: Does the patient meet any 2 criteria? No. Patient's initial sepsis screen is negative. Does the patient have a suspected source of infection? No. Patient's initial sepsis screen is negative. Care prior to arrival: None. 21:01 Acuity: SAMUEL 4 ak1 21:01 Method Of Arrival: Ambulatory ak1 Triage Assessment: 21:04 General: Appears in no apparent distress. Behavior is calm, cooperative, appropriate ak1 for age. Pain: Complains of pain in abdomen. EENT: No signs and/or symptoms were reported regarding the EENT system. Neuro: No deficits noted. Cardiovascular: No deficits noted. Respiratory: No deficits noted. GI: Abdomen is flat, non-distended, Reports hernia felt this morning. pt c/o nausea from hernia. : No signs and/or symptoms were reported regarding the genitourinary system. Derm: Reports left breast is hard, with pain and swelling since last night after breast feeding. Musculoskeletal: No signs and/or symptoms reported regarding the musculoskeletal system. 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 ak1 Historical: - Allergies: 21:04 No Known Allergies; ak1 - Home Meds: 21:04 Vitamin Oral [Active]; ak1 - PMHx: 21:04 Hernia; ak1 - PSHx: 21:04 None; ak1 - Immunization history:: Adult Immunizations unknown. - Social history:: Smoking status: unknown. - Ebola Screening: : No symptoms or risks identified at this time. Screenin:05 Abuse screen: Denies threats or abuse. Denies injuries from another. Nutritional ak1 screening: No deficits noted. Tuberculosis screening: No symptoms or risk factors identified. Fall Risk None identified. Assessment: 21:05 Reassessment: Patient appears in no apparent distress at this time. No changes from ak1 previously documented assessment. Patient and/or family updated on plan of care and expected duration. Pain level reassessed. Patient is alert, oriented x 3, equal unlabored respirations, skin warm/dry/pink. Dr. Sellers at bedside, see triage assessment. 21:26 Reassessment: Patient appears in no apparent distress at this time. No changes from ak1 previously documented assessment. Patient and/or family updated on plan of care and expected duration. Pain level reassessed. Patient is alert, oriented x 3, equal unlabored respirations, skin warm/dry/pink. pt denies vomiting during ER visit. pt with steady gait at discharge. Vital Signs: 21:01 BP 112 / 79; Pulse 85; Resp 16; Temp 97.7; Pulse Ox 100% on R/A; Weight 68.04 kg (R); ak1 Height 5 ft. 5 in. (165.10 cm) (R); Pain 1/10; 21:01 Body Mass Index 24.96 (68.04 kg, 165.10 cm) ak1 ED Course: 20:48 Patient arrived in ED. es 20:51 Morgan Sellers MD is Attending Physician. [facility] 21:01 Radha Patel, KIRTI is Primary Nurse. ak1 21:01 Arm band placed on Patient placed in an exam room, on a stretcher, on pulse oximetry, ak1 Patient notified of wait time. 21:03 Triage completed. ak1 21:05 Patient has correct armband on for positive identification. Bed in low position. Call ak1 light in reach. Side rails up X 1. Pulse ox on. NIBP on. 21:22 No provider procedures requiring assistance completed. Patient did not have IV access ak1 during this emergency room visit. Administered Medications: 21:12 Drug: Augmentin 875 mg Route: PO; ak1 21:22 Follow up: Response: No adverse reaction ak1 21:14 Drug: Zofran 4 mg Route: PO; ak1 21:22 Follow up: Response: No adverse reaction ak1 Outcome: 21:13 Discharge ordered by . mariajose 21:22 Discharged to home ambulatory. ak1 21:22 Condition: good 21:22 Discharge instructions given to patient, Instructed on discharge instructions, follow up and referral plans. no drinking with medication, no driving heavy equipment, medication usage, safe sex practices, Demonstrated understanding of instructions, follow-up care, medications, Prescriptions given X 2. 21:27 Patient left the ED. ak1 Signatures: Morgan Sellers MD MD cha Salyer, Edna es Krenek, Amber, RN RN ak1
[2019-05-01] MEDS ORDERED: ONDANSETRON 4 MG (ODT) TAB ONE (21:16)
[2019-05-01 21:20] LABS: Urine Blood NEGATIVE (NEG); Urine Glucose NEGATIVE (NEG); Urine Protein NEGATIVE (NEG)
== END 2019-05-01 21:27 | disposition home or self-care (01) ==
LOC: ER 20:34
DX: K42.9 Umbilical hernia without obstruction or gangrene (principal); P39.0 Neonatal infective mastitis
CPT/HCPCS: 81003; 81025; 99283